=== PATIENT | male | born 1950 | race Caucasian/White ===

== ENCOUNTER → 2016-05-27 | Outpatient (CLI) | payer BC ==
[~2016-05-27] MED LIST: AMLO10TA2 PO; AMLO5TAB2 GT; AMLO5TAB2 PO; BENA20TA2 PO; BNZ20T GT; CATHETER FLUSH 10 ML SYR IV PRN; HYDR-3875 PO; IOHEXOL 350 MG/ML 100 ML (OMNIPAQUE 350) VIAL IV ONE; MULT-35 PO; NITR-65 PO; NS 100 ML (IVPB) BAG IV ONE; TAMS0.4C98 PO
[2016-05-27 10:32] LABS: BLOOD UREA NITROGEN 12 MG/DL (7-18); BUN/CREATININE RATIO 11; CREATININE SERUM 1.11 MG/DL (0.60-1.30); GFR ESTIMATED > 60
--- NOTE | 2016-05-27 13:32 | Diagnostic Imaging Report ---
PROCEDURE: CT abdomen and pelvis with and without contrast. TECHNIQUE: Precontrast acquisitions were acquired through the abdomen and pelvis. Multiple contiguous axial images were obtained through the abdomen and pelvis after the administration of intravenous contrast. INDICATION: Hematuria. Right flank pain. CONTRAST: 100 mL of Omnipaque 350 was administered intravenously. FINDINGS: The unenhanced phase demonstrates a 5 mm nonobstructive stone in the mid right kidney. A 2 mm stone in the lower pole of the right kidney is also seen. A 1 mm nonobstructive stone in the lower pole of the left kidney is seen. There is no hydronephrosis. No ureteric or urinary bladder stones. Post contrast images demonstrate symmetric enhancement and excretion from the kidneys. A simple cyst in the upper pole of the right kidney measuring 2.4 cm is noted. The left lung base demonstrates an indeterminate 6 mm nodule, image 11. No prior studies are available for comparison. The liver, gallbladder, spleen, and adrenal glands appear unremarkable. A 7 mm fat density focus in the pancreatic head is seen which could be related to a tiny lipoma or fatty lesion in the pancreas. Other subcentimeter low-attenuation lesions in the pancreatic body and tail are also seen which could relate to interdigitating fat rather than true intraparenchymal pancreatic lesions. The abdominal aorta is normal in caliber. There is no periaortic significantly enlarged lymph node seen. The prostate is enlarged and heterogenous measuring 5.7 cm in transverse dimension. The colon demonstrates diverticulosis. No evidence of diverticulitis. The urinary bladder demonstrates mild diffuse wall thickening. Correlate for possible underlying cystitis. There is no significant free fluid or fluid collection in the abdomen or pelvis. No bowel obstruction. The appendix is normal. There is a small to moderate sized right periumbilical ventral hernia containing omental fat. The osseous structures demonstrate disc degenerative changes at L5-S1 and bilateral sacroiliac joints. An incidental sclerotic focus in the central aspect of the sacrum measuring 1.2 cm is seen of uncertain etiology. IMPRESSION: 1. Bilateral small kidney stones with the largest measuring 5 mm in the mid right kidney with no hydronephrosis. 2. Mild thickening in the urinary bladder wall which could correlate with cystitis. 3. Diverticulosis. No diverticulitis. 4. Small to medium fat-containing right periumbilical hernia. 5. Indeterminate 6 mm left lung base nodule. A 6 month followup study to observe this lesion is suggested. 6. Enlarged heterogenous prostate. Dictated by: Dictated on workstation # [id number]
== END ==
LOC: RAD 09:14
PROVIDERS: ATTEND Family Medicine
DX: N39.0 Urinary tract infection, site not specified (principal); R31.9 Hematuria, unspecified
CPT/HCPCS: 36415; 74178; 82565; 84520

== ENCOUNTER 2016-06-04 08:20 | Outpatient (RCR) | payer BC ==
[~2016-06-04 08:20] MED LIST changes: -AMLO10TA2 PO; -AMLO5TAB2 PO; -BENA20TA2 PO; -CATHETER FLUSH 10 ML SYR IV PRN; -HYDR-3875 PO; -IOHEXOL 350 MG/ML 100 ML (OMNIPAQUE 350) VIAL IV ONE; -MULT-35 PO; -NITR-65 PO; -NS 100 ML (IVPB) BAG IV ONE; -TAMS0.4C98 PO
--- NOTE | 2016-06-04 10:38 | Diagnostic Imaging Report ---
INDICATION: Kidney stones COMPARISON STUDY: CT scan from May 27. FINDINGS: A 5.7 mm calculi overlies the right kidney. This was seen on the previous CT scan. Bowel gas pattern appears unremarkable. IMPRESSION: There is a 5.7 mm calculi overlying the right kidney. Dictated by: Dictated on workstation # [id number]
[2016-06-11 22:37] LABS: STONE RISK AMMONIUM 35 mEq/24hr (14-62); STONE RISK BRUSHITE 6.74 (< 2.00); STONE RISK CA OXALATE 1.63 (< 2.00); STONE RISK CALCIUM 443 mg/day (< 250); STONE RISK CITRATE 504 mg/day (> 320); STONE RISK CREATININE 2111 mg/day (800-2000); STONE RISK MAGNESIUM 89 mg/day (> 60); STONE RISK OXALATE 37 mg/day (< 45); STONE RISK PHOSPHOROUS 1697 mg/day (< 1100); STONE RISK POTASSIUM 68 mEq/24hr (19-135); STONE RISK SODIUM 259 mEq/24hr (< 200); STONE RISK SODIUM URATES 2.32 (< 2.00); STONE RISK STRUVITE 6.02 (< 75.00); STONE RISK SULFITE 17 mmol/day (< 30); STONE RISK TOTAL VOLUME 2.92 L/day (> 2.00); STONE RISK URIC ACID 894 mg/day (< 700); STONE RISK URIC ACID SAT 0.15 (< 2.00)
[2016-06-12] MEDS ORDERED: AMLO10TA2 PO (11:56)
[2016-06-12] MEDS ORDERED: AMLO5TAB2 PO (11:56)
[2016-06-12] MEDS ORDERED: BENA20TA2 PO (11:56)
[2016-06-12] MEDS ORDERED: MULT-35 PO (11:57)
[2016-06-16] MEDS ORDERED: TAMS0.4C98 PO (09:43)
[2016-06-16] MEDS ORDERED: HYDR-3875 PO (09:43)
[2016-06-16] MEDS ORDERED: NITR-65 PO (09:43)
== END 2016-09-02 | disposition home or self-care (01) ==
LOC: LAB 08:20
PROVIDERS: ATTEND Urology
DX: N20.0 Calculus of kidney (principal)
CPT/HCPCS: 36415; 74000; 82140; 82340; 82507; 82570; 83735; 83945; 83986; 84105; 84133; 84300; 84392; 84560

== ENCOUNTER 2016-06-12 11:44 | Outpatient (CLI) | payer BC ==
[~2016-06-12] VITALS: Ht 182.9 cm; Wt 118.5 kg
[2016-06-12] MEDS ORDERED: AMLO5TAB2 PO (11:56)
[2016-06-12] MEDS ORDERED: AMLO10TA2 PO (11:56)
[2016-06-12] MEDS ORDERED: BENA20TA2 PO (11:56)
[2016-06-12] MEDS ORDERED: MULT-35 PO (11:57)
[2016-06-12 12:01] VITALS: BP 143/87
[2016-06-12 12:32] LABS: BASOPHILS # (AUTO) 0.1 10^3/uL (0.0-0.1); BASOPHILS % (AUTO) 1 % (0-10); EOSINOPHILS # (AUTO) 0.1 10^3/uL (0.0-0.3); EOSINOPHILS % (AUTO) 3 % (0-10); LYMPHOCYTES # (AUTO) 1.7 X 10^3 (1.0-4.0); LYMPHOCYTES % (AUTO) 34 % (12-44); MEAN CORPUSCULAR HEMOGLOBIN 26 PG (25-34); MEAN CORPUSCULAR HGB CONC 33 G/DL (32-36); MEAN CORPUSCULAR VOLUME 77 FL (80-99); MEAN PLATELET VOLUME 11.6 FL (7.4-10.4); MONOCYTES % (AUTO) 21 % (0-12); NEUTROPHILS % (AUTO) 41 % (42-75); PLATELET COUNT 120 10^3/uL (130-400); RED BLOOD COUNT 5.28 10^6/uL (4.35-5.85); RED CELL DISTRIBUTION WIDTH 15.5 % (10.0-14.5); WHITE BLOOD COUNT 4.9 10^3/uL (4.3-11.0)
[2016-06-12 12:55] LABS: ANION GAP 12 MMOL/L (5-14); BLOOD UREA NITROGEN 15 MG/DL (7-18); BUN/CREATININE RATIO 14; CALCIUM 9.3 MG/DL (8.5-10.1); CARBON DIOXIDE 23 MMOL/L (21-32); CHLORIDE 107 MMOL/L (98-107); CREATININE SERUM 1.05 MG/DL (0.60-1.30); GFR ESTIMATED > 60; GLUCOSE 148 MG/DL (70-105); POTASSIUM 3.2 MMOL/L (3.6-5.0); SODIUM 142 MMOL/L (135-145)
[2016-06-12 13:07] LABS: ANISOCYTOSIS SLIGHT; BAND NEUTROPHILS 2 %; BASOPHILS % (MANUAL) 0 %; EOSINOPHILS % (MANUAL) 3 %; LYMPHOCYTES % (MANUAL) 35 %; NEUTROPHILS % (MANUAL) 40 %; REACTIVE LYMPHOCYTES 5 %
== END 2016-06-12 13:00 | disposition home or self-care (01) ==
LOC: PREOP 11:44
PROVIDERS: ATTEND Urology
DX: Z01.812 Encounter for preprocedural laboratory examination (principal); Z11.2 Encounter for screening for other bacterial diseases; N20.0 Calculus of kidney
CPT/HCPCS: 36415; 80048; 85002; 85007; 85027; 87081

== ENCOUNTER 2016-06-16 06:00 | Day surgery (SDC) | payer BC ==
[~2016-06-16] VITALS: Ht 182.9 cm; Wt 118.5 kg
[~2016-06-16 06:00] MED LIST changes: +AMLO10TA2 PO; +AMLO5TAB2 PO; +BENA20TA2 PO; +MULT-35 PO
[2016-06-16] MEDS ORDERED: FAMOTIDINE 20MG/2ML IV (PEPCID) IV ONE (06:45)
[2016-06-16 06:50] VITALS: BP 141/85
[2016-06-16] MEDS ORDERED: ONDANSETRON 4 MG/2 ML (SDV) Z0FRAN ONE (06:55)
[2016-06-16] MEDS ORDERED: MIDAZOLAM 2 MG/2 ML (VERSED) VIAL ONE (06:55)
[2016-06-16] MEDS ORDERED: fentaNYL INJECTION 100 MCG/2 ML AMP ONE (06:55)
[2016-06-16] MEDS ORDERED: SEVOFLURANE (ULTANE) 15 ML INHAL SOLN ONE (06:55)
[2016-06-16] MEDS ORDERED: LIDOCAINE PF 2% 10 ML (XYLOCAINE) AMP ONE (06:55)
[2016-06-16] MEDS ORDERED: proPOfol 200 MG/20 ML (DIPRIVAN) VIAL IV ONE (06:55)
[2016-06-16] MEDS ORDERED: LACTATED RINGERS 1,000 ML IV ONE ×2 (06:55→08:04)
[2016-06-16] MEDS ORDERED: LEVOFLOXACIN 250 MG/50 ML IVPB 50 ML ONE (07:03)
[2016-06-16] MEDS: LACTATED RINGERS 1,000 ML IV PRN ×2 (07:11→08:17)
--- NOTE | 2016-06-16 07:11 | Progress Note-Pre Operative ---
Pre-Operative Progress Note H&P Reviewed The H&P was reviewed, patient examined and no changes noted. Date H&P Reviewed: Jun 16, 2016 Time H&P Reviewed: 07:11 Pre-Operative Diagnosis: RT RENAL STONES RENEA ZAMORANO MD Jun 16, 2016 7:11 am
[2016-06-16] MEDS ORDERED: LEVOFLOXACIN 250 MG/D5W 50 ML (PRE-MIX) IV ONE (07:30)
--- NOTE | 2016-06-16 07:33 | Progress Note-Post Operative ---
Post-Operative Progess Note Surgeon (s)/Core Winder (s) Surgeon RENEA ZAMORANO MD Core Winder: N/A Pre-Operative Diagnosis RT RENAL STONES Post-Operative Diagnosis SAME Post-Op Procedure Note Date of Procedure: Jun 16, 2016 Name of Procedure Performed: RT ESWL Description of the Procedure: PER DICTATION Findings of the Procedure SAME Anesthesia Type GENERAL Estimated blood loss (mL): N/A Specimen(s) collected/removed N/A RENEA ZAMORANO MD Jun 16, 2016 7:33 am
--- NOTE | 2016-06-16 07:35 | Discharge Inst-Urology ---
Discharge Inst-Urology Discharge Medications New, Converted, or Re-newed RX: RX on Chart Patient Instructions/Follow Up Plan Please make appointment to been seen in office in 2 weeks. KUB prior to it KUB on way home Post ESWL instructions Increase oral fluids for 48 hours and then as needed. Diet and Activity as tolerated. If questions or concerns contact your physician Or seek help at emergency department. RENEA ZAMORANO MD Jun 16, 2016 7:35 am
[2016-06-16] MEDS ORDERED: KETOROLAC 30 MG/ML VIAL ONE (07:42)
[2016-06-16] MEDS ORDERED: FUROSEMIDE 40 MG/4 ML INJ (LASIX) ONE (07:42)
[2016-06-16] MEDS ORDERED: morphine INJ 10 MG/ML 1ML (SYR OR VIAL) ONE (08:04)
--- NOTE | 2016-06-16 08:16 | Diagnostic Imaging Report ---
KUB. INDICATION: Right-sided stone. FINDINGS: There is a 9-mm calcification projecting over the right 12th rib, may represent a right kidney stone. The findings are not definitive by this radiograph given the low density of this presumed calcification and the background moderate amounts of fecal material in the colon. No definite left flank or ureteric stones seen. Prostate calcifications are noted. IMPRESSION: Question of a right kidney stone projecting over the mid right 12th rib. Dictated by: Dictated on workstation # [id number]
[2016-06-16 08:45] VITALS: BP 125/77
[2016-06-16 09:15] VITALS: BP 126/86
[2016-06-16] MEDS ORDERED: TAMS0.4C98 PO (09:43)
[2016-06-16] MEDS ORDERED: HYDR-3875 PO (09:43)
[2016-06-16] MEDS ORDERED: NITR-65 PO (09:43)
[2016-06-16 09:45] VITALS: BP 129/84
--- NOTE | 2016-06-16 09:52 | Diagnostic Imaging Report ---
KUB. INDICATION: Post lithotripsy. FINDINGS: The previously seen faint density in the right flank is not well identified at this time. Punctate nonspecific fecaliths or stone fragments in the right flank area are seen. No definite ureteric stone. IMPRESSION: Punctate hyperdensities may represent tiny stone fragments or fecaliths projecting over the right kidney silhouette. Dictated by: Dictated on workstation # [id number]
[2016-06-16 10:05] VITALS: BP 129/84
--- NOTE | 2016-06-16 11:13 | OPERATIVE REPORT ---
PROCEDURE PHYSICIAN: RENEA ZAMORANO DATE OF PROCEDURE: 06/16/2016 PREOPERATIVE DIAGNOSIS: Right renal stones. POSTOPERATIVE DIAGNOSIS: Right renal stones. OPERATION: Right ESWL. SURGEON: Brigette ANESTHESIA: General. COMPLICATIONS: None. PROCEDURE: With the patient supine on the ESWL table, the right renal stones were localized. Shocks were delivered KV of 5. After 2000 shocks we could not visualize the stone anymore, which seemed to have fragmented nicely. The patient received 40 mg of Lasix and 30 mg of Toradol IV at the end of the procedure. He tolerated the procedure and anesthesia well and was sent to recovery room in stable condition. Job ID: [id number] Dictated Date: 06/16/2016 08:01:10 Federal Mediator Date: 06/16/2016 11:10:07 / farrukh
== END 2016-06-16 10:05 | disposition home or self-care (01) ==
LOC: SDC 06:00
PROVIDERS: ATTEND Urology
DX: N20.0 Calculus of kidney (principal)
CPT/HCPCS: 74000

== ENCOUNTER → 2016-06-30 | Outpatient (CLI) | payer BC ==
[~2016-06-30] MED LIST changes: +HYDR-3875 PO; +NITR-65 PO; +TAMS0.4C98 PO
--- NOTE | 2016-06-30 14:29 | Diagnostic Imaging Report ---
INDICATION: Nephrolithiasis. TECHNIQUE: KUB at 2:36 PM. FINDINGS: The bowel gas pattern is normal. There are no radiopaque calculi seen. There are no masses. The osseous structures are normal. IMPRESSION: Negative abdomen. Dictated by: Dictated on workstation # [id number]
== END ==
LOC: RAD 13:50
PROVIDERS: ATTEND Urology
DX: N20.0 Calculus of kidney (principal)
CPT/HCPCS: 74000

== ENCOUNTER → 2016-11-13 | Outpatient (CLI) | payer BC ==
[~2016-11-13] MED LIST changes: +IOHEXOL 350 MG/ML 100 ML (OMNIPAQUE 350) VIAL IV ONE; +NS 100 ML (IVPB) BAG IV ONE
[2016-11-13 09:34] LABS: BLOOD UREA NITROGEN 15 MG/DL (7-18); BUN/CREATININE RATIO 16; CREATININE SERUM 0.94 MG/DL (0.60-1.30); GFR ESTIMATED > 60
[2016-11-13] MEDS: CATHETER FLUSH 10 ML SYR IV PRN ×2 (09:49→09:51)
--- NOTE | 2016-11-13 12:26 | Diagnostic Imaging Report ---
PROCEDURE: CT abdomen with and without contrast. TECHNIQUE: Multiple contiguous axial CT images of the abdomen were obtained prior to and after intravenous administration of iodinated contrast. INDICATION: Basilar pulmonary nodule. COMPARISON: Exam compared with abdominal CT 05/27/2016. FINDINGS: A tiny 5 mm subpleural nodule posterolateral left lower lobe unchanged and most suggestive of benign etiology. No new dominant or suspicious basilar nodule. There is a minute punctate 1-2 mm nonobstructing stone within a right lower pole calyx. There is a simple cyst off the upper pole right kidney. There is no hydronephrosis. There is no solid or suspicious renal nodule. The liver, spleen, adrenals and pancreas were normal. The atherosclerotic aorta is nonaneurysmal. There is right perimedian umbilical hernia comprised solely of peritoneal fat. The defect in the abdominal wall has a transverse neck diameter of 2.8 cm, unchanged from prior. No obvious inflammatory changes within the herniated fat. There is some scattered colonic diverticuli without evidence of diverticulitis where visualized. No ascites. IMPRESSION: Stable tiny 5 mm subpleural nodule left lower lobe, unchanged umbilical peritoneal fatty hernia, scattered colonic noninflamed diverticuli. Nonobstructing renal calculus and a benign renal cyst. Dictated by: Dictated on workstation # [id number]
== END ==
LOC: RAD 08:48
PROVIDERS: ATTEND Family Medicine
DX: R91.1 Solitary pulmonary nodule (principal); K42.9 Umbilical hernia without obstruction or gangrene; K57.30 Diverticulosis of large intestine without perforation or abscess without bleeding; N20.0 Calculus of kidney; N28.1 Cyst of kidney, acquired
CPT/HCPCS: 36415; 74170; 82565; 84520

== ENCOUNTER → 2017-06-17 | Outpatient (CLI) | payer BC, MEDICARE ==
[~2017-06-17] MED LIST changes: -NS 100 ML (IVPB) BAG IV ONE; +NS 250 ML (IVPB) BAG IV ONE
[2017-06-17 08:13] LABS: BASOPHILS # (AUTO) 0.1 10^3/uL (0.0-0.1); BASOPHILS % (AUTO) 1 % (0-10); EOSINOPHILS # (AUTO) 0.1 10^3/uL (0.0-0.3); EOSINOPHILS % (AUTO) 2 % (0-10); HEMATOCRIT 43 % (40-54); HEMOGLOBIN 14.5 G/DL (13.3-17.7); LYMPHOCYTES # (AUTO) 1.7 X 10^3 (1.0-4.0); LYMPHOCYTES % (AUTO) 39 % (12-44); MEAN CORPUSCULAR HEMOGLOBIN 26 PG (25-34); MEAN CORPUSCULAR HGB CONC 34 G/DL (32-36); MEAN CORPUSCULAR VOLUME 77 FL (80-99); MEAN PLATELET VOLUME 12.1 FL (7.4-10.4); MONOCYTES # (AUTO) 1.1 X 10^3 (0.0-1.0); MONOCYTES % (AUTO) 24 % (0-12); NEUTROPHILS # (AUTO) 1.5 X 10^3 (1.8-7.8); NEUTROPHILS % (AUTO) 35 % (42-75); PLATELET COUNT 119 10^3/uL (130-400); RED BLOOD COUNT 5.62 10^6/uL (4.35-5.85); RED CELL DISTRIBUTION WIDTH 15.3 % (10.0-14.5); WHITE BLOOD COUNT 4.4 10^3/uL (4.3-11.0)
[2017-06-17 08:34] LABS: ALANINE AMINOTRANSFERASE 49 U/L (0-55); ALBUMIN 4.6 GM/DL (3.2-4.5); ALKALINE PHOSPHATASE 70 U/L (40-136); BILIRUBIN,TOTAL 1.8 MG/DL (0.1-1.0); BUN/CREATININE RATIO 14; CALCIUM 9.1 MG/DL (8.5-10.1); CARBON DIOXIDE 24 MMOL/L (21-32); CHLORIDE 106 MMOL/L (98-107); CHOLESTEROL 118 MG/DL (< 200); CREATININE SERUM 0.91 MG/DL (0.60-1.30); GFR ESTIMATED > 60; GLUCOSE 174 MG/DL (70-105); HDL CHOLESTEROL 33 MG/DL (40-60); POTASSIUM 3.5 MMOL/L (3.6-5.0); SODIUM 139 MMOL/L (135-145); TOTAL PROTEIN 7.9 GM/DL (6.4-8.2); TRIGLYCERIDES 113 MG/DL (<150); VLDL CHOLESTEROL 23 MG/DL (5-40)
[2017-06-17 08:40] LABS: BAND NEUTROPHILS 1 %; BASOPHILS % (MANUAL) 0 %; EOSINOPHILS % (MANUAL) 0 %; LYMPHOCYTES % (MANUAL) 38 %; MONOCYTES % (MANUAL) 19 %; NEUTROPHILS % (MANUAL) 42 %
[2017-06-17 08:41] LABS: ANISOCYTOSIS SLIGHT
--- NOTE | 2017-06-17 09:51 | Diagnostic Imaging Report ---
PROCEDURE: CT chest and abdomen with and without contrast TECHNIQUE: Multiple axial CT images through the thorax and abdomen were obtained with and without intravenous contrast. INDICATION: Pulmonary nodule and right renal calculus. Study is performed for followup. Comparison is made to prior CT abdomen study from 11/13/2016. CT CHEST: No axillary lymphadenopathy is seen. There is a fatty right paratracheal lymph node. No definite mediastinal or hilar lymphadenopathy is detected. No pericardial or pleural fluid is identified. Parenchymal evaluation does show approximate 5-6 mm nodule posterior lateral left lower lobe, stable. No new parenchymal lung nodules are seen. There does appear to be some minimal patchy groundglass infiltrate in the medial right lower lobe and the medial and posterior left lower lobe, nonspecific. IMPRESSION: 1. Stable left lower lobe pulmonary nodule. 2. Minimal groundglass infiltrates bilateral lower lobes. CT ABDOMEN: No discrete liver mass is identified. The gallbladder is unremarkable. The pancreas and spleen are unremarkable. No adrenal mass is identified. Previously noted punctate nonobstructing calculus lower pole right kidney is stable. There is no hydronephrosis. There is a right renal cyst which appears stable. The left kidney is unremarkable. The aorta is non-aneurysmal. The visualized small and large bowel loops are normal caliber. There is no ascites. There is a fat-containing umbilical hernia, stable. IMPRESSION: Stable CT of the abdomen when compared with examination from 11/13/2016. A fat-containing umbilical hernia stable. Nonobstructing right renal calculus and right renal cyst are stable. Dictated by: Dictated on workstation # [id number]
== END ==
LOC: RAD 07:52
PROVIDERS: ATTEND Family Medicine
DX: R91.1 Solitary pulmonary nodule (principal); N20.0 Calculus of kidney; N28.1 Cyst of kidney, acquired; K42.9 Umbilical hernia without obstruction or gangrene; I10 Essential (primary) hypertension; E11.9 Type 2 diabetes mellitus without complications; Z79.4 Long term (current) use of insulin
CPT/HCPCS: 36415; 71270; 74170; 80053; 80061; 83036; 85007; 85027

== ENCOUNTER 2019-04-12 15:12 | Outpatient (CLI) | payer MEDICARE ==
[~2019-04-12] VITALS: Ht 182.9 cm; Wt 115.9 kg
[~2019-04-12 15:12] MED LIST changes: -AMLO10TA2 PO; +AMLO10TA7 PO; -AMLO5TAB2 PO; +AMLO5TAB9 PO; -BENA20TA2 PO; +BENA20TA7 PO; -IOHEXOL 350 MG/ML 100 ML (OMNIPAQUE 350) VIAL IV ONE; -NS 250 ML (IVPB) BAG IV ONE; -TAMS0.4C98 PO; +TMSL.4C PO
[2019-04-12] MEDS ORDERED: METF-397 PO (15:13)
== END 2019-04-12 15:16 | disposition home or self-care (01) ==
LOC: PREOP 15:12
PROVIDERS: ATTEND Surgery
DX: Z01.818 Encounter for other preprocedural examination (principal)

== ENCOUNTER → 2020-02-22 | Outpatient (CLI) | payer MEDICARE ==
[~2020-02-22] MED LIST changes: +AMLO-250 PO; +AMLO-251 PO; -AMLO10TA7 PO; -AMLO5TAB9 PO; +BARIUM SUSPENSION 2.1% (VANILLA SILQ) 450 ML PO ONE; +HOLD METFORMIN - RECEIVED CONTRAST 20 ML VIAL IV SCH; +IOHEXOL 350 MG/ML 100 ML (OMNIPAQUE 350) VIAL IV ONE; +METF-397 PO; +NS 100 ML (IVPB) BAG IV ONE
--- NOTE | 2020-02-22 09:39 | Diagnostic Imaging Report ---
PROCEDURE: CT Neck, Chest Abdomen and Pelvis with contrast, Abdomen and Pelvis without. TECHNIQUE: Multiple contiguous axial images were obtained through the neck, chest, abdomen, and pelvis after the uneventful bolus administration of intravenous contrast. Precontrast acquisitions through the abdomen and pelvis were performed. Sagittal and coronal reformations are then performed. Auto Exposure Controls were utilized during the CT exam to meet ALARA standards for radiation dose reduction. INDICATION: Mycosis fungoides. COMPARISON: Correlation is made with prior CT chest and abdomen study from 06/17/2017. FINDINGS: CT neck: The visualized intracranial structures are unremarkable. The posterior nasopharynx and oropharynx are unremarkable. The parapharyngeal fat planes are preserved. The epiglottis and larynx are unremarkable. No thyroid mass is detected. The submandibular as well as the parotid glands appear to be symmetric bilaterally. There are multiple prominent lymph nodes within the jugulodigastric spaces bilaterally. These remain within normal limits in size measuring short axis approximately 9 mm. No definite posterior cervical lymphadenopathy is identified. No supraclavicular lymphadenopathy is identified. IMPRESSION: Essentially unremarkable CT soft tissue neck study. No acute features identified. CT chest: No axillary lymphadenopathy is identified. Borderline lymph node AP window is noted measuring 9 mm. A fatty lymph node in right paratracheal location is noted measures 14 mm. No definite hilar lymphadenopathy is identified. No pericardial or pleural fluid is detected. Pulmonary parenchymal evaluation again demonstrates a noncalcified nodule posterolateral left lower lobe, stable approximately 6-7 mm. Additional micronodule posterolateral right lower lobe is stable as well. No new pulmonary nodules are detected. No infiltrates are detected. IMPRESSION: Stable CT chest when compared with exam from 06/17/2017. Bilateral lower lobe micronodules are stable. CT abdomen and pelvis: No discrete liver mass is identified. Gallbladder is unremarkable. No biliary ductal dilatation is identified. The pancreas and spleen are unremarkable. No adrenal mass is detected. Upper pole low-attenuation lesion right kidney appears to be fairly stable. Left kidney is unremarkable. Aorta is non-aneurysmal. No central, retroperitoneal or mesenteric lymphadenopathy is identified. The small and large bowel loops are normal in caliber. No obstruction is seen. There is extensive diverticulosis of the descending and sigmoid colon. In addition, there is some mild inflammatory stranding at the junction of the descending colon and sigmoid, suspicious for mild underlying diverticulitis. No fluid collection is identified. There is no bowel obstruction. The bladder is decompressed. The prostate gland contains central calcifications. No definite inguinal or iliac lymphadenopathy is identified. Bony structures are nonacute. The midline fat-containing umbilical hernia is again noted. IMPRESSION: 1. No evidence of abdominal or pelvic lymphadenopathy. 2. Diverticulosis with probable acute diverticulitis at the junction of the descending colon and sigmoid. No bowel obstruction or abscess formation is identified. 3. Fat-containing umbilical hernia. Dictated by: Dictated on workstation # [id number]
== END ==
LOC: RAD 08:45
PROVIDERS: ATTEND Internal Medicine Hematology & Oncology
DX: C84.00 Mycosis fungoides, unspecified site (principal); K57.30 Diverticulosis of large intestine without perforation or abscess without bleeding; K42.9 Umbilical hernia without obstruction or gangrene; R91.8 Other nonspecific abnormal finding of lung field
CPT/HCPCS: 70491; 71260; 74178

== ENCOUNTER 2020-03-06 09:38 | Outpatient (RCR) | payer MEDICARE ==
[2020-02-16 10:12] LABS: BASOPHILS # (AUTO) 0.1 10^3/uL (0.0-0.1); BASOPHILS % (AUTO) 1 % (0-10); EOSINOPHILS # (AUTO) 0.1 10^3/uL (0.0-0.3); EOSINOPHILS % (AUTO) 1 % (0-10); HEMATOCRIT 46 % (40-54); HEMOGLOBIN 14.4 g/dL (13.3-17.7); LYMPHOCYTES # (AUTO) 1.9 10^3/uL (1.0-4.0); LYMPHOCYTES % (AUTO) 25 % (12-44); MEAN CORPUSCULAR HEMOGLOBIN 24 pg (25-34); MEAN CORPUSCULAR HGB CONC 31 g/dL (32-36); MEAN CORPUSCULAR VOLUME 76 fL (80-99); MONOCYTES # (AUTO) 1.3 10^3/uL (0.0-1.0); MONOCYTES % (AUTO) 17 % (0-12); NEUTROPHILS # (AUTO) 4.4 10^3/uL (1.8-7.8); NEUTROPHILS % (AUTO) 56 % (42-75); WHITE BLOOD COUNT 7.9 10^3/uL (4.3-11.0)
[2020-02-16 10:16] LABS: PLATELET COUNT 104 10^3/uL (130-400)
[2020-02-16 10:31] LABS: ALBUMIN 4.4 GM/DL (3.2-4.5); BILIRUBIN,TOTAL 1.6 MG/DL (0.1-1.0); CALCIUM 9.2 MG/DL (8.5-10.1); CREATININE SERUM 1.24 MG/DL (0.60-1.30); POTASSIUM 3.8 MMOL/L (3.6-5.0); TOTAL PROTEIN 8.7 GM/DL (6.4-8.2)
[~2020-03-06 09:38] MED LIST changes: -BARIUM SUSPENSION 2.1% (VANILLA SILQ) 450 ML PO ONE; -HOLD METFORMIN - RECEIVED CONTRAST 20 ML VIAL IV SCH; -IOHEXOL 350 MG/ML 100 ML (OMNIPAQUE 350) VIAL IV ONE; -NS 100 ML (IVPB) BAG IV ONE
[2020-03-06 09:50] LABS: MEAN CORPUSCULAR HEMOGLOBIN 24 pg (25-34)
[2020-03-06 09:52] LABS: ABSOLUTE RETIC # 146 10e9/uL (24-90); BASOPHILS # (AUTO) 0.1 10^3/uL (0.0-0.1); BASOPHILS % (AUTO) 1 % (0-10); EOSINOPHILS # (AUTO) 0.1 10^3/uL (0.0-0.3); EOSINOPHILS % (AUTO) 1 % (0-10); HEMATOCRIT 44 % (40-54); HEMOGLOBIN 13.6 g/dL (13.3-17.7); LYMPHOCYTES # (AUTO) 1.8 10^3/uL (1.0-4.0); LYMPHOCYTES % (AUTO) 25 % (12-44); MEAN CORPUSCULAR HGB CONC 31 g/dL (32-36); MEAN CORPUSCULAR VOLUME 77 fL (80-99); MONOCYTES # (AUTO) 1.2 10^3/uL (0.0-1.0); MONOCYTES % (AUTO) 17 % (0-12); NEUTROPHILS # (AUTO) 3.7 10^3/uL (1.8-7.8); NEUTROPHILS % (AUTO) 54 % (42-75); PLATELET COUNT 95 10^3/uL (130-400); RETICULOCYTE % 2.58 % (0.50-2.40); WHITE BLOOD COUNT 6.9 10^3/uL (4.3-11.0)
[2020-03-06 10:15] LABS: ANISOCYTOSIS SLIGHT; ATYPICAL LYMPHOCYTES 2 %; EOSINOPHILS % (MANUAL) 1 %; LYMPHOCYTES % (MANUAL) 26 %; MICROCYTOSIS SLIGHT; MONOCYTES % (MANUAL) 13 %; NEUTROPHILS % (MANUAL) 56 %; REACTIVE LYMPHOCYTES 2 %
== END 2020-03-13 08:39 | disposition home or self-care (01) ==
LOC: ONC 09:38
PROVIDERS: ATTEND Internal Medicine Hematology & Oncology
DX: C84.00 Mycosis fungoides, unspecified site (principal); Z80.0 Family history of malignant neoplasm of digestive organs
CPT/HCPCS: 80053; 83615; 85025; 85027; G0463; 38222; 85007; 85045; 88237; 88264; 99214

== ENCOUNTER 2020-03-18 13:20 | Outpatient (RCR) | payer MEDICARE | END 2020-06-13 16:04 | disposition home or self-care (01) | LOC: ONC 13:20 | PROVIDERS: ATTEND Internal Medicine Hematology & Oncology | DX: C84.00 Mycosis fungoides, unspecified site (principal); D69.6 Thrombocytopenia, unspecified | CPT/HCPCS: 99213 ==

== ENCOUNTER 2020-03-26 18:02 | Emergency (ER) | payer MEDICARE ==
[~2020-03-26] VITALS: Ht 73 cm; Wt 114.0 kg
[2020-03-26] MEDS ORDERED: SILVER NITRATE APPLICATOR 1 PKT TP ONE (18:30)
[2020-03-26] MEDS ORDERED: cloNIDine 0.1 MG (CATAPRES) TAB PO ONE (18:30)
--- NOTE | 2020-03-26 18:52 | ED EENT ---
History of Present Illness General Chief Complaint: Nasal Problems Stated Complaint: BLOODY NOSE SINCE 10 AM Nursing Triage Note: pt has had a nose bleed on the right side since 10 am. Pt states he has low platelets and this has happened to him before he normally has to get it cauterized. Source: patient Exam Limitations: no limitations History of Present Illness Date Seen by Provider: Mar 26, 2020 Time Seen by Provider: 18:19 Initial Comments To ER with intermittent nosebleed on the right since 10 AM. History of low platelets but just had them checked a week ago and they were 108,000. Does not want them rechecked today. Timing/Duration: abrupt Severity: moderate Associated Symptoms: denies symptoms Allergies and Home Medications Allergies Coded Allergies: No Known Drug Allergies (Unverified , 06/12/16) Home Medications Amlodipine Besylate 10 Mg Tablet, 10 MG PO DAILY, (Reported) Amlodipine Besylate 5 Mg Tablet, 5 MG PO DAILY, (Reported) Benazepril HCl 20 Mg Tablet, 20 MG PO DAILY, (Reported) Metformin HCl 500 Mg Tablet, 500 MG PO DAILY, (Reported) Multivitamin 1 Each Tablet, 1 EACH PO DAILY, (Reported) Patient Home Medication List Home Medication List Reviewed: Yes Review of Systems Review of Systems Constitutional: see HPI Eyes: No Symptoms Reported Ears: No Symptoms Reported Nose: see HPI Mouth: no symptoms reported Throat: no symptoms reported Respiratory: no symptoms reported Cardiovascular: no symptoms reported Musculoskeletal: no symptoms reported Skin: no symptoms reported Past Rtpmgka-Xjuggz-Scvsli Hx Patient Social History Alcohol Use: Denies Use Type Used: Cigarettes Former Smoker, Quit: Jun 12, 2006 2nd Hand Smoke Exposure: No Recent Infectious Disease Expo: No Recent Hopitalizations: No Immunizations Up To Date PED Vaccines UTD: Yes Seasonal Allergies Seasonal Allergies: Yes Past Medical History Surgeries: Yes (COLONOSCOPY-polyps removed, ESWL) Respiratory: Yes Sleep Apnea Currently Using CPAP: Yes Cardiac: Yes Hypertension Neurological: Yes (BLAIR MOUNTAIN SPOTTED FEVER) Reproductive Disorders: No Sexually Transmitted Disease: No HIV/AIDS: No Genitourinary: Yes Kidney Stones Gastrointestinal: Yes (UMBILICAL HERNIA) Diverticulosis, Polyps, Hiatal Hernia Musculoskeletal: No (HX OF L4-S1 PROBLEM) Degenerate Disk Disease Endocrine: No (prediabetic) HEENT: No Loss of Vision: Bilateral Hearing Impairment: Denies Cancer: No Psychosocial: No Integumentary: No Blood Disorders: Yes (low platelets) Adverse Reaction/Blood Tranf: No Family Medical History Cancer 19 MOTHER (COLON CANCER THAT METASTICIZED TO LIVER) Cancer of colon 19 MOTHER Colon cancer Family history: Hypertension 19 MOTHER No Family History of: Abdominal aortic aneurysm Lamoille's disease Alcoholism Aphasia Cataract Chest pain Congenital heart disease Congestive heart failure Cystic fibrosis Dementia Dysphagia Family history: Allergy Family history: Alzheimer's disease Family history: Arthritis Family history: Asthma Family history: Breast disease Family history: Cardiovascular disease Family history: Coronary thrombosis Family history: Diabetes mellitus Family history: Gastrointestinal disease Family history: Glaucoma Family history: Osteoporosis Family history: Thyroid disorder Headache Hearing loss Heart disease Hereditary disease History of - anemia History of - disorder History of - respiratory disease History of drug abuse Human immunodeficiency virus (HIV) seropositivity Hypercholesterolemia Infertile Kidney disease Malignant neoplasm of lung Myocardial infarction Parkinson's disease Prostate cancer Psychotic disorder Seizure disorder Stroke Tuberculosis Visual impairment Physical Exam Vital Signs Vital Signs - First Documented 03/26/20 18:12 Temp 36.4 Pulse 75 Resp 20 B/P (MAP) 183/99 (127) Pulse Ox 95 O2 Delivery Room Air Height, Weight, BMI Height: 6'0.00" Weight: 261lbs. 3.0oz. [id number]; 213.00 BMI Method: General Appearance: WD/WN, no apparent distress Eyes: bilateral eye normal inspection, bilateral eye PERRL, bilateral eye EOMI Ears: bilateral ear auricle normal, bilateral ear canal normal, bilateral ear TM normal Nose: active bleeding (Slow oozing of blood from the right side of the anterior nasal septum easily cauterized with 2 silver nitrate sticks with hemostasis.) Neck: non-tender, full range of motion Respiratory: no respiratory distress, no accessory muscle use Gastrointestinal: normal bowel sounds, non tender Neurologic/Psychiatric: alert, normal mood/affect, oriented x 3 Skin: normal color, warm/dry Progress/Results/Core Measures Results/Orders My Orders Orders - LOTTIE MUNOZ APRN Oxymetazoline 0.05% Nasal Mylo (Afrin 0. (03/26/20 21:00) Silver Nitrate Applicator (Silver Nitrat (03/26/20 18:30) Clonidine Tablet (Catapres Tablet) (03/26/20 18:30) Medications Given in ED Current Medications Medications Dose Ordered Sig/Nichole Route Start Time Stop Time Status Last Admin Dose Admin Clonidine HCl 0.1 mg ONCE ONCE PO 03/26/20 18:30 03/26/20 18:31 DC 03/26/20 18:30 0.1 MG Vital Signs/I&O 03/26/20 18:12 Temp 36.4 Pulse 75 Resp 20 B/P (MAP) 183/99 (127) Pulse Ox 95 O2 Delivery Room Air Blood Pressure Mean: 127 Departure Communication (Admissions) Blood pressure was up to 170/100. Given clonidine. He will need to follow-up with primary care for hypertension. Impression Primary Impression: Epistaxis Additional Impression: High blood pressure Disposition: HOME, SELF-CARE Condition: Stable Departure-Patient Inst. Decision time for Depature: 18:53 Referrals: HANS MCMILLAN MD (PCP/Family) Primary Care Physician Patient Instructions: Nosebleeds (DC) Add. Discharge Instructions: 1. Follow-up with Dr. Mcmillan this week for recheck of blood pressure. Return to ER for any concerns. All discharge instructions reviewed with patient and/or family. Voiced understanding. LOTTIE MUNOZ NURSE PRACTITIONER ADULT Mar 26, 2020 18:52
[2020-03-26 19:22] VITALS: BP 183/101
[2020-03-26] MEDS ORDERED: OXYMETAZOLINE (AFRIN) 0.05% NA 30 ML BTL SCH (21:00)
== END 2020-03-26 19:22 | disposition home or self-care (01) ==
LOC: EDUNIT# 18:02 → ER 18:06
DX: R04.0 Epistaxis (principal); I10 Essential (primary) hypertension; Z87.891 Personal history of nicotine dependence; Z80.0 Family history of malignant neoplasm of digestive organs; Z82.49 Family history of ischemic heart disease and other diseases of the circulatory system
CPT/HCPCS: 99283

== ENCOUNTER → 2020-04-16 | Outpatient (CLI) | payer MEDICARE | LOC: LAB 10:38 | PROVIDERS: ATTEND Family Medicine | DX: Z01.82 Encounter for allergy testing (principal) | CPT/HCPCS: 36415; 86003 ==

== ENCOUNTER 2020-06-15 18:48 | Emergency (ER) | payer MEDICARE ==
[~2020-06-15] VITALS: Ht 182 cm; Wt 113.3 kg
[2020-06-15 18:56] VITALS: BP 172/96
[2020-06-15] MEDS ORDERED: LIDOCAINE 1% INJ 20 ML 20 ML VIAL INJ ONE (19:30)
[2020-06-15] MEDS ORDERED: RX-HYDROCODONE/APAP 5/325 MG #4 TAB PK PO PRN (19:30)
--- NOTE | 2020-06-15 19:47 | ED Integumentary General ---
General Chief Complaint: Skin/Wound Problems Stated Complaint: POSSIBLE INFECTION, WOUND ON BACK OF NECK Nursing Triage Note: Patient ambulatory to ER with c/o wound to posterior right head. Pt states this has been present x 4 days. He did see his PCP yesterday. He has been taking antibiotics for 30 days for skin issues but does not remember what kind of antibiotic it is. There is puralent drainage present. Patient took tylenol 650 mg 30 minutes ago. Source: patient Exam Limitations: no limitations History of Present Illness Date Seen by Provider: Jun 15, 2020 Time Seen by Provider: 19:30 Initial Comments To ER with reports of a right posterior parietal scalp wound. He saw Dr. Ramirez in [place] from dermatology and was given an antibiotic for 30 days. States is now draining some pus. Timing/Duration: getting worse Severity: moderate Location: scalp Possible Cause: no cause identified Associated Symptoms: denies symptoms Allergies and Home Medications Allergies Coded Allergies: No Known Drug Allergies (Unverified , 06/12/16) Home Medications Amlodipine Besylate 10 Mg Tablet, 10 MG PO DAILY, (Reported) Amlodipine Besylate 5 Mg Tablet, 5 MG PO DAILY, (Reported) Benazepril HCl 20 Mg Tablet, 20 MG PO DAILY, (Reported) Metformin HCl 500 Mg Tablet, 500 MG PO DAILY, (Reported) Multivitamin 1 Each Tablet, 1 EACH PO DAILY, (Reported) Patient Home Medication List Home Medication List Reviewed: Yes Review of Systems Review of Systems Constitutional: see HPI; No chills EENTM: see HPI Respiratory: no symptoms reported Cardiovascular: no symptoms reported Genitourinary: no symptoms reported Musculoskeletal: no symptoms reported Skin: see HPI Psychiatric/Neurological: No Symptoms Reported Endocrine: No Symptoms Reported Past Zgsybwj-Xizagz-Kvakpt Hx Patient Social History Alcohol Use: Denies Use Smoking Status: Former Smoker Type Used: Cigarettes Former Smoker, Quit: Jun 12, 2006 2nd Hand Smoke Exposure: No Recent Infectious Disease Expo: No Recent Hopitalizations: No Immunizations Up To Date PED Vaccines UTD: Yes Seasonal Allergies Seasonal Allergies: Yes Past Medical History Surgeries: Yes (COLONOSCOPY-polyps removed, ESWL) Respiratory: Yes Sleep Apnea Currently Using CPAP: Yes Cardiac: Yes Hypertension Neurological: Yes (BLAIR MOUNTAIN SPOTTED FEVER) Reproductive Disorders: No Sexually Transmitted Disease: No HIV/AIDS: No Genitourinary: Yes Kidney Stones Gastrointestinal: Yes (UMBILICAL HERNIA) Diverticulosis, Polyps, Hiatal Hernia Musculoskeletal: No (HX OF L4-S1 PROBLEM) Degenerate Disk Disease Endocrine: No (prediabetic) HEENT: No Loss of Vision: Bilateral Hearing Impairment: Denies Cancer: No Psychosocial: No Integumentary: No Blood Disorders: Yes (low platelets) Adverse Reaction/Blood Tranf: No Family Medical History Cancer 19 MOTHER (COLON CANCER THAT METASTICIZED TO LIVER) Cancer of colon 19 MOTHER Colon cancer Family history: Hypertension 19 MOTHER No Family History of: Abdominal aortic aneurysm [place]'s disease Alcoholism Aphasia Cataract Chest pain Congenital heart disease Congestive heart failure Cystic fibrosis Dementia Dysphagia Family history: Allergy Family history: Alzheimer's disease Family history: Arthritis Family history: Asthma Family history: Breast disease Family history: Cardiovascular disease Family history: Coronary thrombosis Family history: Diabetes mellitus Family history: Gastrointestinal disease Family history: Glaucoma Family history: Osteoporosis Family history: Thyroid disorder Headache Hearing loss Heart disease Hereditary disease History of - anemia History of - disorder History of - respiratory disease History of drug abuse Human immunodeficiency virus (HIV) seropositivity Hypercholesterolemia Infertile Kidney disease Malignant neoplasm of lung Myocardial infarction Parkinson's disease Prostate cancer Psychotic disorder Seizure disorder Stroke Tuberculosis Visual impairment Physical Exam Vital Signs Vital Signs - First Documented 06/15/20 18:56 Temp 35.9 Pulse 88 Resp 18 B/P (MAP) 172/96 (121) Pulse Ox 94 O2 Delivery Room Air Capillary Refill : Less Than 3 Seconds General Appearance: WD/WN, no apparent distress HEENT: PERRL/EOMI, normal ENT inspection Neck: non-tender, full range of motion Respiratory: no respiratory distress, no accessory muscle use Neurologic/Psychiatric: alert, normal mood/affect, oriented x 3 Skin: normal color, warm/dry Skin Problem Location: scalp Skin Problem Character: abscess Procedures/Interventions I&D : Blade Size: 11 Progress/Results/Core Measures Results/Orders My Orders Orders - LOTTIE MUNOZ APRN Wound Culture (06/15/20 19:21) Lidocaine 1% Inj 20 Ml (Xylocaine 1% Inj (06/15/20 19:30) Rx-Hydrocodone/Apap 5-325 Mg (Rx-Vicodin (06/15/20 19:30) Medications Given in ED Current Medications Medications Dose Ordered Sig/Nichole Route Start Time Stop Time Status Last Admin Dose Admin Lidocaine HCl 20 ml ONCE ONCE INJ 06/15/20 19:30 06/15/20 19:31 DC 06/15/20 19:26 20 ML Vital Signs/I&O 06/15/20 18:56 Temp 35.9 Pulse 88 Resp 18 B/P (MAP) 172/96 (121) Pulse Ox 94 O2 Delivery Room Air Blood Pressure Mean: 121 Departure Impression Primary Impression: Abscess Disposition: HOME, SELF-CARE Condition: Stable Departure-Patient Inst. Decision time for Depature: 19:47 Referrals: HANS MCMILLAN MD (PCP/Family) Primary Care Physician Patient Instructions: Wound Care (DC) Add. Discharge Instructions: 1. Return to ER for any concerns. Continue the oral antibiotics. Change the dressing as needed. All discharge instructions reviewed with patient and/or family. Voiced understanding. LOTTIE MUNOZ TEACHER EMOTIONALLY IMPAIRED Jun 15, 2020 19:47
== END 2020-06-15 19:55 | disposition home or self-care (01) ==
LOC: EDUNIT# 18:48 → ER 18:53
DX: L02.811 Cutaneous abscess of head [any part, except face] (principal); I10 Essential (primary) hypertension; Z87.891 Personal history of nicotine dependence; Z82.49 Family history of ischemic heart disease and other diseases of the circulatory system; Z80.0 Family history of malignant neoplasm of digestive organs
CPT/HCPCS: 87070; 87077; 87186; 87205; 99284

== ENCOUNTER 2020-08-09 18:44 | Emergency (ER) | payer MEDICARE ==
[~2020-08-09] VITALS: Ht 172.7 cm; Wt 113.4 kg
[2020-08-09 18:55] VITALS: BP 153/95
--- NOTE | 2020-08-09 19:17 | ED Integumentary General ---
General Stated Complaint: ABSCESS ON TOP OF HEAD Source: patient Exam Limitations: no limitations History of Present Illness Date Seen by Provider: Aug 09, 2020 Time Seen by Provider: 19:03 Initial Comments Patient ER by private conveyance from home with chief complaint of an abscess on the top of his head coming for the past couple days. He says he been trying to get it to drain unsuccessfully. He has a history of some kind of folliculitis diagnosed by dermatology at [facility]. He is doing 90 days of doxycycline because of a history of MRSA infected folliculitis and then will be doing isotretinoin a after that. 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 all of which were negative. He is still on the doxycycline. Allergies and Home Medications Allergies Coded Allergies: No Known Drug Allergies (Unverified , 06/12/16) Home Medications Amlodipine Besylate 10 Mg Tablet, 10 MG PO DAILY, (Reported) Amlodipine Besylate 5 Mg Tablet, 5 MG PO DAILY, (Reported) Benazepril HCl 20 Mg Tablet, 20 MG PO DAILY, (Reported) Metformin HCl 500 Mg Tablet, 500 MG PO DAILY, (Reported) Multivitamin 1 Each Tablet, 1 EACH PO DAILY, (Reported) Patient Home Medication List Home Medication List Reviewed: Yes Review of Systems Review of Systems Constitutional: No chills, No fever Respiratory: No cough, No short of breath Cardiovascular: No edema, No palpitations Gastrointestinal: No abdominal pain, No constipation Past Xlbayms-Ssgiai-Hpikbm Hx Patient Social History Alcohol Use: Denies Use Smoking Status: Former Smoker Type Used: Cigarettes Former Smoker, Quit: Jun 12, 2006 2nd Hand Smoke Exposure: No Recent Hopitalizations: No Immunizations Up To Date PED Vaccines UTD: Yes Seasonal Allergies Seasonal Allergies: Yes Past Medical History Surgeries: Yes (COLONOSCOPY-polyps removed, ESWL) Respiratory: Yes Sleep Apnea Currently Using CPAP: Yes Cardiac: Yes Hypertension Neurological: Yes (BLAIR MOUNTAIN SPOTTED FEVER) Reproductive Disorders: No Sexually Transmitted Disease: No HIV/AIDS: No Genitourinary: Yes Kidney Stones Gastrointestinal: Yes (UMBILICAL HERNIA) Diverticulosis, Polyps, Hiatal Hernia Musculoskeletal: No (HX OF L4-S1 PROBLEM) Degenerate Disk Disease Endocrine: No (prediabetic) HEENT: No Loss of Vision: Bilateral Hearing Impairment: Denies Cancer: No Psychosocial: No Integumentary: No Blood Disorders: Yes (low platelets) Adverse Reaction/Blood Tranf: No Family Medical History Cancer 19 MOTHER (COLON CANCER THAT METASTICIZED TO LIVER) Cancer of colon 19 MOTHER Colon cancer Family history: Hypertension 19 MOTHER No Family History of: Abdominal aortic aneurysm [place]'s disease Alcoholism Aphasia Cataract Chest pain Congenital heart disease Congestive heart failure Cystic fibrosis Dementia Dysphagia Family history: Allergy Family history: Alzheimer's disease Family history: Arthritis Family history: Asthma Family history: Breast disease Family history: Cardiovascular disease Family history: Coronary thrombosis Family history: Diabetes mellitus Family history: Gastrointestinal disease Family history: Glaucoma Family history: Osteoporosis Family history: Thyroid disorder Headache Hearing loss Heart disease Hereditary disease History of - anemia History of - disorder History of - respiratory disease History of drug abuse Human immunodeficiency virus (HIV) seropositivity Hypercholesterolemia Infertile Kidney disease Malignant neoplasm of lung Myocardial infarction Parkinson's disease Prostate cancer Psychotic disorder Seizure disorder Stroke Tuberculosis Visual impairment Physical Exam Vital Signs Capillary Refill : General Appearance: WD/WN, no apparent distress HEENT: normal ENT inspection, pharynx normal Neck: full range of motion, normal inspection Cardiovascular: normal peripheral pulses, regular rate, rhythm Respiratory: no respiratory distress, no accessory muscle use Neurologic/Psychiatric: alert, normal mood/affect, oriented x 3 Skin: other (Nodular appearing folliculitis over his neck and scalp. There is a raised 1 cm tall, 2 cm diameter tender papule with draining pointing central area and fluctuance palpable underneath on the left portion of his parietal occipital scalp. Small amount of dried serous crusting.) Procedures/Interventions I&D : Site: Left parietal occipital scalp Blade Size: 11 I & D Procedure: betadine prep (Alcohol wipe) Progress Site was cleaned twice with alcohol allowed to dry and then infiltrated with 1/2 cc of 1% lidocaine which gave good anesthesia. Using 11 blade scalpel we made a 4 x 4 millimeter crosswise incision and expressed about 1-1/2 cc of thick, nonmalodorous, sebaceous versus purulent material which was cultured with ase ptic technique. Wound was expressed, flushed, probed with a sterile cotton- tipped applicator and dressed with gauze. Patient tolerated the procedure well. Progress/Results/Core Measures Results/Orders My Orders Orders - YOUSUF ESQUEDA Wound Culture (08/09/20 19:13) Departure Impression Primary Impression: Abscess Additional Impression: Chronic folliculitis Disposition: 01 HOME, SELF-CARE Condition: Stable Departure-Patient Inst. Decision time for Depature: 19:15 Referrals: HANS MCMILLAN MD (PCP/Family) Primary Care Physician Patient Instructions: Abscess Incision and Drainage (DC) Add. Discharge Instructions: You have an infected folliculitis on the top of your head that has been opened and drained. It should continue to drain over the next couple days. Do not attempt to clog the wound or cover it with Vaseline. A loose gauze dressing to catch the drainage is all you need. Keep the wound clean with regular soap and water or shampoo only. Do not use antibacterial soap. Do not use chlorhexidine, alcohol, iodine or hydrogen peroxide as this will delay wound healing and increase your risk of a wound infection. Keep your follow-up appointment with a orthopaedic physician assistant. Continue take the doxycycline as prescribed. The wound culture should result out by Wednesday or Wednesday of next week. You may follow-up with your primary care doctor for results. Copy Copies To 1: HANS MCMILLAN MD, TITUS J Aug 09, 2020 19:17
== END 2020-08-09 19:33 | disposition home or self-care (01) ==
LOC: EDUNIT# 18:44 → ER 18:46
DX: L73.8 Other specified follicular disorders (principal); L02.811 Cutaneous abscess of head [any part, except face]; I10 Essential (primary) hypertension; G47.30 Sleep apnea, unspecified; Z99.89 Dependence on other enabling machines and devices; Z87.891 Personal history of nicotine dependence; Z86.14 Personal history of Methicillin resistant Staphylococcus aureus infection
CPT/HCPCS: 87070; 87077; 87186; 87205; 99282

== ENCOUNTER 2020-09-02 09:43 | Outpatient (RCR) | payer MEDICARE ==
[2020-06-18 10:30] LABS: BASOPHILS % (AUTO) 1 % (0-10)
[2020-06-18 10:32] LABS: BASOPHILS # (AUTO) 0.1 10^3/uL (0.0-0.1); EOSINOPHILS % (AUTO) 0 % (0-10); HEMATOCRIT 42 % (40-54); HEMOGLOBIN 13.2 g/dL (13.3-17.7); LYMPHOCYTES # (AUTO) 1.9 10^3/uL (1.0-4.0); LYMPHOCYTES % (AUTO) 18 % (12-44); MEAN CORPUSCULAR HEMOGLOBIN 24 pg (25-34); MEAN CORPUSCULAR HGB CONC 32 g/dL (32-36); MEAN CORPUSCULAR VOLUME 77 fL (80-99); MONOCYTES # (AUTO) 1.7 10^3/uL (0.0-1.0); MONOCYTES % (AUTO) 16 % (0-12); NEUTROPHILS # (AUTO) 6.7 10^3/uL (1.8-7.8); NEUTROPHILS % (AUTO) 63 % (42-75); PLATELET COUNT 75 10^3/uL (130-400); WHITE BLOOD COUNT 10.7 10^3/uL (4.3-11.0)
[2020-06-18 10:47] LABS: ALBUMIN 3.9 GM/DL (3.2-4.5); BILIRUBIN,TOTAL 1.2 MG/DL (0.1-1.0); CREATININE SERUM 1.25 MG/DL (0.60-1.30); TOTAL PROTEIN 8.2 GM/DL (6.4-8.2)
[2020-09-02 09:53] LABS: BASOPHILS # (AUTO) 0.1 10^3/uL (0.0-0.1); BASOPHILS % (AUTO) 1 % (0-10); NEUTROPHILS % (AUTO) 62 % (42-75)
[2020-09-02 09:55] LABS: EOSINOPHILS # (AUTO) 0.1 10^3/uL (0.0-0.3); EOSINOPHILS % (AUTO) 1 % (0-10); HEMATOCRIT 40 % (40-54); HEMOGLOBIN 12.5 g/dL (13.3-17.7); LYMPHOCYTES # (AUTO) 1.9 10^3/uL (1.0-4.0); LYMPHOCYTES % (AUTO) 20 % (12-44); MEAN CORPUSCULAR HEMOGLOBIN 24 pg (25-34); MEAN CORPUSCULAR HGB CONC 31 g/dL (32-36); MEAN CORPUSCULAR VOLUME 76 fL (80-99); MONOCYTES # (AUTO) 1.3 10^3/uL (0.0-1.0); MONOCYTES % (AUTO) 14 % (0-12); NEUTROPHILS # (AUTO) 5.9 10^3/uL (1.8-7.8); WHITE BLOOD COUNT 9.6 10^3/uL (4.3-11.0)
[2020-09-02 09:56] LABS: PLATELET COUNT 101 10^3/uL (130-400)
[2020-09-02 10:11] LABS: ALBUMIN 3.8 GM/DL (3.2-4.5); BILIRUBIN,TOTAL 1.2 MG/DL (0.1-1.0); CALCIUM 8.9 MG/DL (8.5-10.1); CREATININE SERUM 1.23 MG/DL (0.60-1.30); POTASSIUM 3.7 MMOL/L (3.6-5.0); TOTAL PROTEIN 8.9 GM/DL (6.4-8.2)
== END 2020-09-16 | disposition home or self-care (01) ==
LOC: ONC 09:43
PROVIDERS: ATTEND Internal Medicine Hematology & Oncology
DX: C84.00 Mycosis fungoides, unspecified site (principal); D69.6 Thrombocytopenia, unspecified
CPT/HCPCS: 80053; 83615; 85025; G0463; 99213

== ENCOUNTER 2021-03-23 15:40 | Emergency (ER) | payer MEDICARE ==
[~2021-03-23] VITALS: Ht 183 cm; Wt 111.1 kg
[~2021-03-23 15:40] MED LIST changes: +BENA-3 PO; -BENA20TA7 PO
[2021-03-23 16:04] LABS: BASOPHILS # (AUTO) 0.1 10^3/uL (0.0-0.1); BASOPHILS % (AUTO) 1 % (0-10); EOSINOPHILS % (AUTO) 0 % (0-10); HEMATOCRIT 41 % (40-54); HEMOGLOBIN 12.8 g/dL (13.3-17.7); LYMPHOCYTES # (AUTO) 2.2 10^3/uL (1.0-4.0); LYMPHOCYTES % (AUTO) 22 % (12-44); MEAN CORPUSCULAR HEMOGLOBIN 24 pg (25-34); MEAN CORPUSCULAR HGB CONC 31 g/dL (32-36); MEAN CORPUSCULAR VOLUME 75 fL (80-99); MONOCYTES # (AUTO) 1.5 10^3/uL (0.0-1.0); MONOCYTES % (AUTO) 15 % (0-12); NEUTROPHILS # (AUTO) 6.2 10^3/uL (1.8-7.8); NEUTROPHILS % (AUTO) 61 % (42-75); WHITE BLOOD COUNT 10.1 10^3/uL (4.3-11.0)
[2021-03-23 16:05] LABS: PLATELET COUNT 97 10^3/uL (130-400)
[2021-03-23] MEDS ORDERED: PANTOPRAZOLE 40 MG (PROTONIX) VIAL IV ONE (16:15)
[2021-03-23 16:31] LABS: BILIRUBIN,TOTAL 1.6 MG/DL (0.1-1.0); CALCIUM 9.4 MG/DL (8.5-10.1); CREATININE SERUM 1.06 MG/DL (0.60-1.30); POTASSIUM 3.5 MMOL/L (3.6-5.0); TOTAL PROTEIN 8.2 GM/DL (6.4-8.2)
--- NOTE | 2021-03-23 16:32 | ED GI ---
General Chief Complaint: Rect Problems Stated Complaint: BLOOD IN STOOL Nursing Triage Note: PT AMB TO RM 5 W C/O OF BLOODY STOOLS SX 0930 THIS AM. PT REPORTS HE'S HAD 4 BM'S TODAY, FIRST BM HAD BRIGHT RED BLOOD, BLOOD HAS BEEN GETTING DARKER W LAST 3 BM'S. PT A&OX4, DENIES PAIN. Source of Information: Patient Exam Limitations: No Limitations History of Present Illness Date Seen by Provider: Mar 23, 2021 Time Seen by Provider: 15:48 Initial Comments Patient presents ER by private conveyance from home with chief complaint that this morning about 9:00 he had a large bloody bowel movement. He said 2 more since then. He is not having any chest pain shortness of air. He is not on a blood thinner. He states he has been told he has low platelets in the past. He is not having any pain anywhere. He is not having any nausea or vomiting. He had colonoscopy 3 to [address] Bobo and a couple years after that. Each time found benign polyps. Allergies and Home Medications Allergies Coded Allergies: No Known Drug Allergies (Unverified , 06/12/16) Patient Home Medication List Home Medication List Reviewed: Yes Amlodipine Besylate (Amlodipine Besylate) 10 Mg Tablet, 10 MG PO DAILY, (Reported) Entered as Reported by: DALLAS BAHENA on 06/12/16 115 Amlodipine Besylate (Amlodipine Besylate) 5 Mg Tablet, 5 MG PO DAILY, (Reported) Entered as Reported by: DALLAS BAHENA on 06/12/16 1156 Benazepril HCl (Benazepril HCl) 20 Mg Tablet, 20 MG PO DAILY, (Reported) Entered as Reported by: DALLAS BAHENA on 06/12/16 115 Metformin HCl (Metformin HCl) 500 Mg Tablet, 500 MG PO DAILY, (Reported) Entered as Reported by: LAN RAMÍREZ on 04/12/19 151 Multivitamin (Daily Multiple Vitamin) 1 Each Tablet, 1 EACH PO DAILY, (Reported) Entered as Reported by: DALLAS BAHENA on 06/12/16 1157 Review of Systems Review of Systems Constitutional: No chills, No diaphoresis EENTM: No Blurred Vision, No Double Vision Respiratory: Denies Cough, Denies Shortness of Air Cardiovascular: Denies Chest Pain, Denies Lightheadedness Gastrointestinal: Denies Abdomen Distended, Denies Abdominal Pain, Denies Constipated; Diarrhea; Denies Nausea; Rectal Bleeding Genitourinary: Denies Burning, Denies Discharge Musculoskeletal: No back pain, No joint pain All Other Systems Reviewed Negative Unless Noted: Yes Past Xdqjsvs-Bgfhrg-Untnew Hx Patient Social History Tobacco Use?: No Use of E-Cig and/or Vaping dev: No Substance use?: No Alcohol Use?: No Immunizations Up To Date PED Vaccines UTD: Yes Influenza Vaccine Up-to-Date: No; Not Current First/Initial COVID19 Vaccinat: may 2020 Second COVID19 Vaccination Wil: june 2020 COVID19 Vaccine 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: [employer] Seasonal Allergies Seasonal Allergies: Yes Past Medical History Surgeries: Yes (COLONOSCOPY-polyps removed, ESWL) Respiratory: Yes Sleep Apnea Currently Using CPAP: Yes Cardiac: Yes Hypertension Neurological: Yes (BLAIR MOUNTAIN SPOTTED FEVER) Reproductive Disorders: No Sexually Transmitted Disease: No HIV/AIDS: No Genitourinary: Yes Kidney Stones Gastrointestinal: Yes (UMBILICAL HERNIA) Diverticulosis, Polyps, Hiatal Hernia Musculoskeletal: No (HX OF L4-S1 PROBLEM) Degenerate Disk Disease Endocrine: No Diabetes, Non-Insulin dep HEENT: No Loss of Vision: Bilateral Hearing Impairment: Denies Cancer: No Psychosocial: No Integumentary: No Blood Disorders: Yes (low platelets) Adverse Reaction/Blood Tranf: No Family Medical History Cancer 19 MOTHER (COLON CANCER THAT METASTICIZED TO LIVER) Cancer of colon 19 MOTHER Colon cancer Family history: Hypertension 19 MOTHER No Family History of: Abdominal aortic aneurysm [place]'s disease Alcoholism Aphasia Cataract Chest pain Congenital heart disease Congestive heart failure Cystic fibrosis Dementia Dysphagia Family history: Allergy Family history: Alzheimer's disease Family history: Arthritis Family history: Asthma Family history: Breast disease Family history: Cardiovascular disease Family history: Coronary thrombosis Family history: Diabetes mellitus Family history: Gastrointestinal disease Family history: Glaucoma Family history: Osteoporosis Family history: Thyroid disorder Headache Hearing loss Heart disease Hereditary disease History of - anemia History of - disorder History of - respiratory disease History of drug abuse Human immunodeficiency virus (HIV) seropositivity Hypercholesterolemia Infertile Kidney disease Malignant neoplasm of lung Myocardial infarction Parkinson's disease Prostate cancer Psychotic disorder Seizure disorder Stroke Tuberculosis Visual impairment Physical Exam Vital Signs Vital Signs - First Documented 03/23/21 15:44 Temp 36.3 Pulse 85 Resp 20 B/P (MAP) 192/94 (126) Pulse Ox 98 O2 Delivery Room Air Capillary Refill : Less Than 3 Seconds Height/Weight/BMI Height: 6'0.00" Weight: 261lbs. 3.0oz. 118.425232di; 33.00 BMI Method: General Appearance: WD/WN, no apparent distress HEENT: PERRL/EOMI, pharynx normal Neck: full range of motion, normal inspection Respiratory: normal breath sounds, no respiratory distress, no accessory muscle use Cardiovascular: normal peripheral pulses, regular rate, rhythm Gastrointestinal: normal bowel sounds, non tender, soft Genital/Rectal: heme positive stool, other (Normal size prostate. No masses in the rectal verge. No infarcted hemorrhoids noted or fissures. There is some dark maroon-red secretions at the anus.) Extremities: normal inspection, normal capillary refill Progress/Results/Core Measures Results/Orders Lab Results Laboratory Tests Test 03/23/21 15:50 Range/Units White Blood Count 10.1 4.3-11.0 10^3/uL Red Blood Count 5.42 4.30-5.52 10^6/uL Hemoglobin 12.8 L 13.3-17.7 g/dL Hematocrit 41 40-54 % Mean Corpuscular Volume 75 L 80-99 fL Mean Corpuscular Hemoglobin 24 L 25-34 pg Mean Corpuscular Hemoglobin Concent 31 L 32-36 g/dL Red Cell Distribution Width 16.2 H 10.0-14.5 % Platelet Count 97 L 130-400 10^3/uL Mean Platelet Volume 9.0-12.2 fL Immature Granulocyte % (Auto) 2 % Neutrophils (%) (Auto) 61 42-75 % Lymphocytes (%) (Auto) 22 12-44 % Monocytes (%) (Auto) 15 H 0-12 % Eosinophils (%) (Auto) 0 0-10 % Basophils (%) (Auto) 1 0-10 % Neutrophils # (Auto) 6.2 1.8-7.8 10^3/uL Lymphocytes # (Auto) 2.2 1.0-4.0 10^3/uL Monocytes # (Auto) 1.5 H 0.0-1.0 10^3/uL Eosinophils # (Auto) 0.0 0.0-0.3 10^3/uL Basophils # (Auto) 0.1 0.0-0.1 10^3/uL Immature Granulocyte # (Auto) 0.2 H 0.0-0.1 10^3/uL Percent Immature Platelet Fraction 20.9 H 0.0-7.6 % My Orders Orders - YOUSUF ESQUEDA Corie Cbc With Automated Diff (03/23/21 15:54) Occult Blood Stool (03/23/21 15:54) Comprehensive Metabolic Panel (03/23/21 15:56) Pantoprazole Injection (Protonix Injecti (03/23/21 16:15) Medications Given in ED Current Medications Medications Dose Ordered Sig/Nichole Route Start Time Stop Time Status Last Admin Dose Admin Pantoprazole 40 mg ONCE ONCE IV 03/23/21 16:15 03/23/21 16:16 DC 03/23/21 16:12 40 MG Vital Signs/I&O 03/23/21 15:44 Temp 36.3 Pulse 85 Resp 20 B/P (MAP) 192/94 (126) Pulse Ox 98 O2 Delivery Room Air Blood Pressure Mean: 126 Progress Progress Note : Time: 16:30 Progress Note Positive fecal occult test. Gave him some pantoprazole. Referenced the pathology results from his last colonoscopy showed 2 hyperplastic polyps. He may require repeat endoscopy. We will put him on some antacids if his h emoglobin is okay and having follow-up next week with Dr. Bobo. Departure Impression Primary Impression: Lower GI bleed Disposition: 01 HOME, SELF-CARE Condition: Stable Departure-Patient Inst. Decision time for Depature: 16:34 Referrals: JOSE BOBO CHAD C MD (PCP/Family) Primary Care Physician Patient Instructions: Bloody Stools, Adult (DC) Add. Discharge Instructions: Drink plenty of fluids. Take pantoprazole 40 mg daily to help reduce your acid content and thereby decrease irritation of the colon lining. I suspect there may be an AV, polyp or other malformation source of the bleed in your colon that will be discovered by endoscopy. Call Dr. Bobo and he will set you up for endoscopy as appropriate. Return to the nearest ER promptly if you begin to experience chest pain, severe shortness of air or other worrisome symptoms All discharge instructions reviewed with patient and/or family. Voiced understanding. Copy Copies To 1: JOSE BOBO TITUS J Mar 23, 2021 16:32
[2021-03-23 16:45] VITALS: BP 131/74
[2021-03-28] MEDS ORDERED: PANT40TA2 PO (14:39)
[2021-03-28] MEDS ORDERED: SUCR1TAB36 PO (14:39)
== END 2021-03-23 16:45 | disposition home or self-care (01) ==
LOC: EDUNIT# 15:40 → ER 15:41
DX: K92.2 Gastrointestinal hemorrhage, unspecified (principal); G47.30 Sleep apnea, unspecified; I10 Essential (primary) hypertension; E11.9 Type 2 diabetes mellitus without complications; Z79.84 Long term (current) use of oral hypoglycemic drugs; Z79.899 Other long term (current) drug therapy
CPT/HCPCS: 36415; 80053; 85025; 96374

== ENCOUNTER 2021-03-26 05:29 | Outpatient (RCR) | payer MEDICARE ==
[~2021-03-26] VITALS: Ht 183 cm; Wt 109.0 kg
== END 2021-03-26 11:05 | disposition home or self-care (01) ==
LOC: PREOP 05:29
PROVIDERS: ATTEND Surgery
DX: Z01.812 Encounter for preprocedural laboratory examination (principal); K62.5 Hemorrhage of anus and rectum; Z20.822 Contact with and (suspected) exposure to COVID-19
CPT/HCPCS: 87635

== ENCOUNTER 2021-03-28 12:56 | Day surgery (SDC) | payer MEDICARE ==
[~2021-03-28] VITALS: Ht 182.9 cm; Wt 112.6 kg
[2021-03-28] MEDS ORDERED: LACTATED RINGERS 1,000 ML IV ONE (12:59)
[2021-03-28] MEDS ORDERED: LACTATED RINGERS 1,000 ML IV STA (13:00)
[2021-03-28] MEDS ORDERED: HURRICAINE EXT TUBE (BENZOCAINE) XX PRN (13:00)
[2021-03-28 13:15] VITALS: BP 144/81
--- NOTE | 2021-03-28 13:19 | Progress Note-Pre Operative ---
Pre-Operative Progress Note H&P Reviewed The H&P was reviewed, patient examined and no changes noted. Date Seen by Provider: Mar 28, 2021 Time Seen by Provider: 13:19 Date H&P Reviewed: Mar 28, 2021 Time H&P Reviewed: 13:19 Pre-Operative Diagnosis: rectal bleeding, black tarry stools JOSE BOBO DO Mar 28, 2021 13:19
[2021-03-28] MEDS ORDERED: PROPOFOL INJECTION 50 ML IV ONE ×2 (13:33→13:51)
[2021-03-28 14:15] VITALS: BP 93/51
--- NOTE | 2021-03-28 14:17 | Anesthesia-General Post-Op ---
MAC Patient Condition Mental Status/LOC: Same as Preop Cardiovascular: Satisfactory Nausea/Vomiting: Absent Respiratory: Satisfactory Pain: Controlled Complications: Absent Post Op Complications Complications None Follow Up Care/Instructions Patient Instructions None needed. Anesthesiology Discharge Order Discharge Order Patient is doing well, no complaints, stable vital signs, no apparent adverse anesthesia problems. No complications reported per nursing. FARAZ MELLO CRNA Mar 28, 2021 14:17
[2021-03-28 14:20] VITALS: BP 90/50
[2021-03-28 14:25] VITALS: BP 106/59
--- NOTE | 2021-03-28 14:29 | Progress Note-Post Operative ---
Post-Operative Progess Note Surgeon (s)/It Systems Analyst (s) Surgeon JOSE BOBO DO It Systems Analyst: na Pre-Operative Diagnosis rectal bleeding, black tarry stools Post-Operative Diagnosis small hiatal, erosive esophagitis, duodenal polyp, diverticulosis Procedure & Operative Findings Date of Procedure 03/28/21 Procedure Performed/Findings egd c hot bx polypectomy duodenum, cold biopsy of antrum, ge colonoscopy Anesthesia Type per nurse charge rn Estimated Blood Loss Estimated blood loss (mL): none Specimens/Packing Specimens Removed duodenal polyp, antrum, ge JOSE BOBO DO Mar 28, 2021 14:29
[2021-03-28] MEDS ORDERED: SUCR1TAB36 PO (14:39)
[2021-03-28] MEDS ORDERED: PANT40TA2 PO (14:39)
--- NOTE | 2021-03-28 14:39 | Discharge Inst-Simple/Standard ---
Discharge Inst-Standard Discharge Medications New, Converted or Re-Newed RX: Transmitted to Pharmacy Patient Instructions/Follow Up Plan of Care/Instructions/FU: 2 weeks lexii Activity as Tolerated: Yes Discharge Diet: Regular Diet (high fiber) JOSE BOBO DO Mar 28, 2021 14:39
[2021-03-28 14:50] VITALS: BP 118/79
[2021-03-28 15:00] VITALS: BP 118/79
--- NOTE | 2021-03-28 20:33 | OPERATIVE REPORT ---
DATE OF SERVICE: 03/28/2021 PREOPERATIVE DIAGNOSIS: Bright red blood per rectum and blood per stools. POSTOPERATIVE DIAGNOSES: Reflux esophagitis, small hiatal hernia, duodenal polyp, diverticulosis. PROCEDURE: EGD with hot biopsy polypectomy of duodenal polyp and cold biopsies of the antrum and GE junction, colonoscopy. SURGEON: Chapincito Russell DO ANESTHESIA: Per MEDICAL SCIENTIFIC LIAISON. ESTIMATED BLOOD LOSS: None. COMPLICATIONS: None. INDICATIONS: The patient is a 71-year-old male who has been having bright red blood per rectum and black tarry stools. He understands risks and benefits of procedures and wishes to proceed. Consent was signed in the chart. DESCRIPTION OF PROCEDURE: The patient was taken to the endoscopy suite, placed in left recumbent position. Timeout was performed. Scope was inserted into the mouth, down the esophagus, stomach and into the duodenum without difficulty. A second portion with no polyps, masses or ulcerations, first portion with small polyps one inflamed and questionable history of appearance of maybe bleeding previously. Hot biopsy polypectomy was performed. Scope was then continuously retracted back into the stomach where it was further insufflated. No polyps, masses or ulcerations within the stomach and the antrum. Biopsy of the antrum was obtained. Scope was retroflexed noting a small hiatal hernia. Also an area of some inflammation where it appears to be maybe a small ulcer that healed. Scope was then returned to its normal position, slowly withdrawn to distal esophagus. GE junction had some inflammation and also probably small ulcer biopsies of the GE junction of this area were obtained. Scope was then slowly retracted back. No other polyps, masses or ulcerations. Digital rectal exam was performed. No palpable polyps, masses or ulcerations. Scope was inserted in the rectum, advanced all the way to cecum with minimal difficulty. Prep was adequate with irrigation and suction. Scope was then slowly retracted back. No polyps, masses or ulcerations within the cecum, ascending, transverse, descending and sigmoid colon. Throughout the colon, diverticulosis was present. Once in the rectum, scope was retroflexed noting no other pathology. Scope was returned to its normal position, slowly withdrawn until completely removed. The patient tolerated procedure well without any complications, taken to recovery room in stable condition. RECOMMENDATIONS: The patient will need a repeat colonoscopy on an as needed basis if benefits outweigh the risks. He has history of polyps, would recommend 5 years. If any issues before that, they will be seen at that time. The patient will be started on Protonix 40 mg daily and Carafate 1 gram four times a day and see how he is doing. He will follow up in the office in couple of weeks to discuss pathology results. Any change in condition, should be seen at that time. Job ID: [id number] DocumentID: [id number] Dictated Date: 03/28/2021 14:37:42 Varnish Maker Date: 03/28/2021 20:31:18 Dictated By: DO STANISLAW BLANK
== END 2021-03-28 15:00 | disposition home or self-care (01) ==
LOC: ENDO 12:56
PROVIDERS: ATTEND Surgery
DX: K21.00 Gastro-esophageal reflux disease with esophagitis, without bleeding (principal); K29.80 Duodenitis without bleeding; K31.7 Polyp of stomach and duodenum; K57.30 Diverticulosis of large intestine without perforation or abscess without bleeding; K44.9 Diaphragmatic hernia without obstruction or gangrene; K92.1 Melena; I10 Essential (primary) hypertension; G47.33 Obstructive sleep apnea (adult) (pediatric); Z99.89 Dependence on other enabling machines and devices; Z87.891 Personal history of nicotine dependence; E11.9 Type 2 diabetes mellitus without complications; E66.9 Obesity, unspecified; Z68.33 Body mass index [BMI] 33.0-33.9, adult; D69.6 Thrombocytopenia, unspecified; Z79.899 Other long term (current) drug therapy; Z79.84 Long term (current) use of oral hypoglycemic drugs
CPT/HCPCS: 88305

== ENCOUNTER 2021-12-20 18:55 | Emergency (ER) | payer MEDICARE ==
[~2021-12-20] VITALS: Ht 183 cm; Wt 109.0 kg
[~2021-12-20 18:55] MED LIST changes: +PANT40TA2 PO; +SUCR1TAB36 PO
[2021-12-20] MEDS ORDERED: SILD50TA48 (19:11)
[2021-12-20] MEDS ORDERED: FLUC150T41 (19:11)
[2021-12-20] MEDS ORDERED: HYDR453.3 (19:11)
[2021-12-20] MEDS ORDERED: NYST15CR35 (19:11)
[2021-12-20] MEDS ORDERED: RX-TRIMETH/SULFA. 160-800 MG (BACTRIM DS) TAB PPK#2 PO STA (19:20)
--- NOTE | 2021-12-20 19:20 | ED Integumentary General ---
General Chief Complaint: Skin/Wound Problems Stated Complaint: ABSCESS ON BUTTOCK Nursing Triage Note: left buttocks wound since 12/12/21. seen by pcp started on abx without improvement Source: patient History of Present Illness Date Seen by Provider: Dec 20, 2021 Time Seen by Provider: 19:11 Initial Comments PT ARRIVES VIA POV FROM HOME STATES HE HAS AN ABSCESS TO HIS RIGHT BUTTOCK FOR THE LAST WEEK NO DRAINAGE FROM THE AREA NO FEVER NO PROBLEMS WITH BM'S PT HAS HISTORY OF MULTIPLE ABSCESSES TO VARIOUS PARTS OF BODY, WITH MRSA CULTURED FROM PREVIOUS ABSCESSES--RESISTANT TO CLINDAMYCIN PT HAS NOT SOUGHT CARE UNTIL TODAY FOR THIS PROBLEM. HAS DOXYCYCLINE AT HOME AND HAS TAKEN A FEW PILLS WITHOUT IMPROVEMENT. PT IS UP TO DATE ON TETANUS VACCINE PCP: DR. HANS MCMILLAN Allergies and Home Medications Allergies Coded Allergies: No Known Drug Allergies (Unverified , 06/12/16) Patient Home Medication List Amlodipine Besylate (Amlodipine Besylate) 10 Mg Tablet, 10 MG PO DAILY, (Reported) Entered as Reported by: DALLAS BAHENA on 06/12/16 115 Amlodipine Besylate (Amlodipine Besylate) 5 Mg Tablet, 5 MG PO DAILY, (Reported) Entered as Reported by: DALLAS BAHENA on 06/12/16 1156 Benazepril HCl (Benazepril HCl) 20 Mg Tablet, 20 MG PO DAILY, (Reported) Entered as Reported by: DALLAS BAHENA on 06/12/16 1156 Fluconazole (Fluconazole) 150 Mg Tablet, (Reported) Entered as Reported by: OLVIN TRENT on 12/20/211910 Last Action: New Order Hydrocortisone (Hydrocortisone) 2.5 % Cream..g., (Reported) Entered as Reported by: OLVIN TRENT on 12/20/211910 Last Action: New Order Metformin HCl (Metformin HCl) 500 Mg Tablet, 500 MG PO DAILY, (Reported) Entered as Reported by: LAN RAMÍREZ on 04/12/19 151 Multivitamin (Daily Multiple Vitamin) 1 Each Tablet, 1 EACH PO DAILY, (Reported) Entered as Reported by: DALLAS BAHENA on 06/12/16 115 Naproxen (Naproxen) 500 Mg Tablet.dr, 500 MG PO BID Prescribed by: NIGEL NIELSEN on 12/20/211923 Nystatin (Nystatin) 100,000 Unit/Gram Cream..g., (Reported) Entered as Reported by: OLVIN TRENT on 12/20/211910 Last Action: New Order Pantoprazole Sodium (Protonix) 40 Mg Tablet.dr, 40 MG PO DAILY Prescribed by: JOSE BOBO on 03/28/21 143 Sildenafil Citrate (Sildenafil Citrate) 50 Mg Tablet, (Reported) Entered as Reported by: OLVIN TRENT on 12/20/211910 Last Action: New Order Sucralfate (Carafate) 1 Gm Tablet, 1 GM PO QID Prescribed by: JSOE BOBO on 03/28/21 143 Sulfamethoxazole/Trimethoprim (Bactrim Ds Tablet) 1 Each Tablet, 2 EACH PO BID Prescribed by: NIGEL NIELSEN on 12/20/211923 Tramadol HCl (Tramadol HCl) 50 Mg Tablet, 50 MG PO Q6H PRN for PAIN Prescribed by: NIGEL NIELSEN on 12/20/211924 Review of Systems Review of Systems Constitutional: no symptoms reported Musculoskeletal: see HPI Skin: see HPI Psychiatric/Neurological: No Symptoms Reported Past Kohzuxg-Akufrg-Vlzscd Hx Patient Social History Tobacco Use?: No Substance use?: No Alcohol Use?: No Pt feels they are or have been: No Immunizations Up To Date PED Vaccines UTD: Yes First/Initial COVID19 Vaccinat: x3 Second COVID19 Vaccination Wil: 06-13-20 Seasonal Allergies Seasonal Allergies: Yes Past Medical History Surgery/Hospitalization HX: htn, high cholesterol, luis m mountain spotted fever, skin abcesses Surgeries: Yes (COLONOSCOPY-polyps removed, ESWL;ABSCESS I&D'S) Renal Respiratory: Yes Pulmonary Embolism, Sleep Apnea Currently Using CPAP: No Cardiac: Yes High Cholesterol, Hypertension Neurological: No Reproductive Disorders: No Sexually Transmitted Disease: No HIV/AIDS: No Genitourinary: Yes Kidney Stones Gastrointestinal: Yes Gastroesophageal Reflux Musculoskeletal: Yes Degenerate Disk Disease, Chronic Back Pain Endocrine: Yes Diabetes, Non-Insulin dep HEENT: Yes Loss of Vision: Bilateral Hearing Impairment: Denies Cancer: No Psychosocial: No Integumentary: Yes (FOLICULITIS; ABSCESSES; MRSA; RMSF) Blood Disorders: Yes ("LOW PLATELETS"; RMSF) Adverse Reaction/Blood Tranf: No (N/A) Family Medical History Cancer 19 MOTHER (COLON CANCER THAT METASTICIZED TO LIVER) Cancer of colon 19 MOTHER Colon cancer Family history: Hypertension 19 MOTHER No Family History of: Abdominal aortic aneurysm [place]'s disease Alcoholism Aphasia Cataract Chest pain Congenital heart disease Congestive heart failure Cystic fibrosis Dementia Dysphagia Family history: Allergy Family history: Alzheimer's disease Family history: Arthritis Family history: Asthma Family history: Breast disease Family history: Cardiovascular disease Family history: Coronary thrombosis Family history: Diabetes mellitus Family history: Gastrointestinal disease Family history: Glaucoma Family history: Osteoporosis Family history: Thyroid disorder Headache Hearing loss Heart disease Hereditary disease History of - anemia History of - disorder History of - respiratory disease History of drug abuse Human immunodeficiency virus (HIV) seropositivity Hypercholesterolemia Infertile Kidney disease Malignant neoplasm of lung Myocardial infarction Parkinson's disease Prostate cancer Psychotic disorder Seizure disorder Stroke Tuberculosis Visual impairment Physical Exam Vital Signs Vital Signs - First Documented 12/20/21 19:07 Temp 36.8 Pulse 80 Resp 16 B/P (MAP) 149/81 (103) Pulse Ox 95 O2 Delivery Room Air Capillary Refill : Less Than 3 Seconds General Appearance: WD/WN, no apparent distress Skin: normal color, warm/dry, other (LEFT LOWER BUTTOCK WITH APPROXIMATELY 6X8 CM AREA OF ERYTHEMA, VERY FIRM INDURATION, WARMTH AND TENDERNESS, WITH 1 CM CENTRAL DARK AREA. NO POINTING, NO FLUCTUANCE. NO DRAINAGE. NO STREAKS. ANUS IS NOT INVOLVED. ) Progress/Results/Core Measures Results/Orders My Orders Orders - NIGEL NIELSEN DO Sulfamethoxazole/Trimet Ds Tab (Bactrim (12/20/21 19:30) Rx-Trimeth/Sulfameth Ds Tab (Rx-Bactrim/ (12/20/21 19:20) Rx-Naproxen (Rx-Naprosyn) (12/20/21 19:25) Rx-Tramadol Hcl (Rx-Ultram) (12/20/21 19:25) Medications Given in ED Current Medications Medications Dose Ordered Sig/Nichole Route Start Time Stop Time Status Last Admin Dose Admin Trimethoprim/ Sulfamethoxazole 2 ea ONCE ONCE PO 12/20/21 19:30 12/20/21 19:31 DC 12/20/21 19:35 2 EA Vital Signs/I&O 12/20/21 12/20/21 19:07 19:30 Temp 36.8 36.8 Pulse 80 80 Resp 16 16 B/P (MAP) 149/81 (103) 149/81 Pulse Ox 95 95 O2 Delivery Room Air Room Air Blood Pressure Mean: 103 Progress Progress Note : Progress Note OFFERED TO DO I&D OF THE AREA, AND PT DECLINES, AND WOULD LIKE TO TRY ANTIBIOTICS FIRST AND FOLLOW UP WITH DR. MCMILLAN IN OFFICE. PT HAS TOLERATED BACTRIM IN THE PAST, AND ON PRIOR C&S OF ABSCESSES, PT HAS GROWN OUT MRSA THAT IS SENSITIVE TO BACTRIM AND RESISTANT TO CLINDAMYCIN. Departure Impression Primary Impression: ABSCESS OR CELLULITIS OF LEFT BUTTOCK Additional Impression: Hx MRSA infection Disposition: HOME, SELF-CARE Condition: Stable Departure-Patient Inst. Decision time for Depature: 19:21 Referrals: HANS MCMILLAN MD (PCP/Family) Primary Care Physician Patient Instructions: MRSA (DC), Skin Abscess, How to Wash Your Hands Properly Add. Discharge Instructions: MOIST HEAT TO THE AREA AT 20 MINUTE INTERVALS FOLLOW UP WITH DR. MCMILLAN ON WEDNESDAY FOR FURTHER CARE RETURN TO ER IF WORSE All discharge instructions reviewed with patient and/or family. Voiced understanding. Scripts Tramadol HCl (Tramadol HCl) 50 Mg Tablet 50 MG PO Q6H PRN for PAIN for 3 Days, #15 TAB 0 Refills Prov: NIGEL NIELSEN DO 12/20/21 Naproxen (Naproxen) 500 Mg Tablet. 500 MG PO BID, #20 TAB Prov: NIGEL NIELSEN DO 12/20/21 Sulfamethoxazole/Trimethoprim (Bactrim Ds Tablet) 1 Each Tablet 2 EACH PO BID for 7 Days, #28 TAB Prov: NIGEL NIELSEN DO 12/20/21 NIGEL NIELSEN DO Dec 20, 2021 19:20
[2021-12-20] MEDS ORDERED: TRM50T PO (19:24)
[2021-12-20] MEDS ORDERED: SULF1TAB38 PO (19:24)
[2021-12-20] MEDS ORDERED: NAPR500T8 PO (19:24)
[2021-12-20] MEDS ORDERED: RX-NAPROXEN (NAPROSYN) 250 MG TAB PPK#4 PO STA (19:25)
[2021-12-20 19:30] VITALS: BP 149/81
[2021-12-20] MEDS ORDERED: TRIM/SULFAMETH 160/800 (SEPTRA DS) TAB PO ONE (19:30)
== END 2021-12-20 19:42 | disposition home or self-care (01) ==
LOC: EDUNIT# 18:55 → ER 18:57
DX: Z86.14 Personal history of Methicillin resistant Staphylococcus aureus infection (principal)
CPT/HCPCS: 99283

== ENCOUNTER 2022-01-31 15:05 | Emergency (ER) | payer MEDICARE ==
[~2022-01-31] VITALS: Ht 182 cm; Wt 107.0 kg
[~2022-01-31 15:05] MED LIST changes: +FLUC150T41; +HYDR453.3; +NAPR500T8 PO; +NYST15CR35; +SILD50TA48; +SULF1TAB38 PO; +TRM50T PO
--- NOTE | 2022-01-31 17:01 | Diagnostic Imaging Report ---
EXAMINATION: Chest 1 view HISTORY: shortness of air COMPARISON: None available. FINDINGS: Heart size and pulmonary vasculature are normal. Mild interstitial opacities in the lung bases. No pneumothorax or pleural effusion. The osseous structures are intact. IMPRESSION: 1. Mild opacities in the lung bases which could represent atelectasis, pulmonary edema or atypical infection. Dictated by: Dictated on workstation # [id number]
[2022-01-31] MEDS ORDERED: NIRM1TAB PO (17:31)
--- NOTE | 2022-01-31 17:31 | ED General ---
General Chief Complaint: COVID19 Suspect/Confirmed Stated Complaint: COVID +/CONGESTION/BODYACHES/COUGH Source of Information: Patient Exam Limitations: No Limitations (PATRICE FOSTER APRN) History of Present Illness Date Seen by Provider: Jan 31, 2022 Time Seen by Provider: 15:45 Initial Comments Patient is a 71-year-old male who presents to the emergency department with nasal congestion, bodyaches, and cough that began 3 to 4 days ago. Patient te sted positive for COVID today. Patient's is also being evaluated for similar symptoms after testing positive for COVID today as well. Patient states he feels like he is slowly getting better. Denies any chest pain. Has not taken anything for the symptoms today. States he has been able to get out and work in the yard some today. (PATRICE FOSTER APRN) Allergies and Home Medications Allergies Coded Allergies: No Known Drug Allergies (Unverified , 06/12/16) Patient Home Medication List Home Medication List Reviewed: Yes (PATRICE FOSTER APRN) Amlodipine Besylate (Amlodipine Besylate) 10 Mg Tablet, 10 MG PO DAILY, (Rep orted) Entered as Reported by: DALLAS BAHENA on 06/12/16 115 Amlodipine Besylate (Amlodipine Besylate) 5 Mg Tablet, 5 MG PO DAILY, (Reported) Entered as Reported by: DALLAS BAHENA on 06/12/16 115 Benazepril HCl (Benazepril HCl) 20 Mg Tablet, 20 MG PO DAILY, (Reported) Entered as Reported by: DALLAS BAHENA on 06/12/16 115 Fluconazole (Fluconazole) 150 Mg Tablet, (Reported) Entered as Reported by: OLVIN TRENT on 12/20/211910 Hydrocortisone (Hydrocortisone) 2.5 % Cream..g., (Reported) Entered as Reported by: OLVIN TRENT on 12/20/211910 Metformin HCl (Metformin HCl) 500 Mg Tablet, 500 MG PO DAILY, (Reported) Entered as Reported by: LAN RAMÍREZ on 04/12/19 151 Multivitamin (Daily Multiple Vitamin) 1 Each Tablet, 1 EACH PO DAILY, (Reported) Entered as Reported by: DALLAS BAHENA on 06/12/16 115 Naproxen (Naproxen) 500 Mg Tablet.dr, 500 MG PO BID Prescribed by: NIGEL NIELSEN on 12/20/211923 Nirmatrelvir/Ritonavir (Paxlovid 300-100 mg Pack (Eua)) 300 Mg (150 Mg X 2)-100 Mg Tab.ds.pk, 1 EACH PO BID Prescribed by: Patrice Foster on 01/31/22 1731 Nystatin (Nystatin) 100,000 Unit/Gram Cream..g., (Reported) Entered as Reported by: OLVIN TRENT on 12/20/211910 Pantoprazole Sodium (Protonix) 40 Mg Tablet.dr, 40 MG PO DAILY Prescribed by: JOSE BOBO on 03/28/21 143 Sildenafil Citrate (Sildenafil Citrate) 50 Mg Tablet, (Reported) Entered as Reported by: OLVIN TRENT on 12/20/211910 Sucralfate (Carafate) 1 Gm Tablet, 1 GM PO QID Prescribed by: JOSE BOBO on 03/28/21 143 Sulfamethoxazole/Trimethoprim (Bactrim Ds Tablet) 1 Each Tablet, 2 EACH PO BID Prescribed by: NIGEL NIELSEN on 12/20/211923 Tramadol HCl (Tramadol HCl) 50 Mg Tablet, 50 MG PO Q6H PRN for PAIN Prescribed by: NIGEL NIELSEN on 12/20/211924 Review of Systems Review of Systems Constitutional: no symptoms reported EENTM: no symptoms reported Respiratory: see HPI, cough Cardiovascular: no symptoms reported Gastrointestinal: no symptoms reported (PATRICE FOSTER APRN) Past Eotwolv-Ozcemi-Rhfnzo Hx Patient Social History Tobacco Use?: No Substance use?: No Alcohol Use?: No Pt feels they are or have been: No (PATRICE FOSTER APRN) Immunizations Up To Date PED Vaccines UTD: Yes First/Initial COVID19 Vaccinat: x3 Second COVID19 Vaccination Wil: x3 Third COVID19 Vaccination Date: x3 (PATRICE FOSTER APRN) Seasonal Allergies Seasonal Allergies: Yes (PATRICE FOSTER APRN) Past Medical History Surgery/Hospitalization HX: htn, high cholesterol, luis m mountain spotted fever, skin abcesses, LOW PLATLETS, DIABETES TYPE II Surgeries: Yes (COLONOSCOPY-polyps removed, ESWL;ABSCESS I&D'S) Renal Respiratory: Yes Pulmonary Embolism, Sleep Apnea Currently Using CPAP: No Cardiac: Yes High Cholesterol, Hypertension Neurological: No Reproductive Disorders: No Sexually Transmitted Disease: No HIV/AIDS: No Genitourinary: Yes Kidney Stones Gastrointestinal: Yes Gastroesophageal Reflux Musculoskeletal: Yes Degenerate Disk Disease, Chronic Back Pain Endocrine: Yes Diabetes, Non-Insulin dep HEENT: Yes Loss of Vision: Bilateral Hearing Impairment: Denies Cancer: No Psychosocial: No Integumentary: Yes (FOLICULITIS; ABSCESSES; MRSA; RMSF) Blood Disorders: Yes ("LOW PLATELETS"; RMSF) Adverse Reaction/Blood Tranf: No (N/A) (PATRICE FOSTER APRN) Family Medical History Cancer 19 MOTHER (COLON CANCER THAT METASTICIZED TO LIVER) Cancer of colon 19 MOTHER Colon cancer Family history: Hypertension 19 MOTHER No Family History of: Abdominal aortic aneurysm [place] disease Alcoholism Aphasia Cataract Chest pain Congenital heart disease Congestive heart failure Cystic fibrosis Dementia Dysphagia Family history: Allergy Family history: Alzheimer's disease Family history: Arthritis Family history: Asthma Family history: Breast disease Family history: Cardiovascular disease Family history: Coronary thrombosis Family history: Diabetes mellitus Family history: Gastrointestinal disease Family history: Glaucoma Family history: Osteoporosis Family history: Thyroid disorder Headache Hearing loss Heart disease Hereditary disease History of - anemia History of - disorder History of - respiratory disease History of drug abuse Human immunodeficiency virus (HIV) seropositivity Hypercholesterolemia Infertile Kidney disease Malignant neoplasm of lung Myocardial infarction Parkinson's disease Prostate cancer Psychotic disorder Seizure disorder Stroke Tuberculosis Visual impairment Physical Exam Vital Signs Vital Signs - First Documented 01/31/22 01/31/22 15:39 17:40 Temp 37.2 Pulse 79 Resp 19 B/P (MAP) 153/78 (103) Pulse Ox 97 O2 Delivery Room Air (ANANTH STEEN MD) Vital Signs Capillary Refill : Less Than 3 Seconds (PATRICE FOSTER APRN) Height, Weight, BMI Height: 6'0.00" Weight: 261lbs. 3.0oz. 118.153488sw; 32.00 BMI Method: General Appearance: No Apparent Distress, WD/WN HEENT: PERRL/EOMI, TMs Normal, Normal ENT Inspection, Pharynx Normal Neck: Full Range of Motion, Normal Inspection, Non Tender, Supple Respiratory: Chest Non Tender, Lungs Clear, Normal Breath Sounds, No Accessory Muscle Use, No Respiratory Distress Cardiovascular: Regular Rate, Rhythm Neurologic/Psychiatric: Alert, Oriented x3, No Motor/Sensory Deficits, Normal Mood/Affect, display decorator II-XII Norm as Tested Skin: Normal Color, Warm/Dry (PATRICE FOSTER APRN) Progress/Results/Core Measures Suspected Sepsis SIRS Temperature: Pulse: 79 Respiratory Rate: 19 Blood Pressure 153 /78 Mean: 103 (PATRICE FOSTER APRN) Results/Orders Lab Results Laboratory Tests Test 01/31/22 16:03 Range/Units Influenza Type A (RT-PCR) Not Detected Not Detecte Influenza Type B (RT-PCR) Not Detected Not Detecte SARS-CoV-2 RNA (RT-PCR) Detected H Not Detecte (ANANTH STEEN MD) Vital Signs/I&O 01/31/22 01/31/22 15:39 17:40 Temp 37.2 Pulse 79 70 Resp 19 20 B/P (MAP) 153/78 (103) 130/78 Pulse Ox 97 95 O2 Delivery Room Air (ANANTH STEEN MD) Vital Signs/I&O Capillary Refill : Less Than 3 Seconds (PATRICE FOSTER APRN) Blood Pressure Mean: 103 Progress Note : Progress Note Patient is nontoxic and well-hydrated on exam. No adventitious lung sounds or increased work of breathing noted. Vital signs are reassuring. Patient is awake alert and oriented answers all questions appropriately. No nuchal rigidity noted. COVID test positive here. Chest x-ray acutely negative. Discussed supportive care and anticipatory guidance. Follow-up with PCP. Return precautions for urgent symptomology discussed. Patient was given a prescription for Paxlovid. Patient verbalized understanding. (PATRICE FOSTER APRN) Departure Impression Primary Impression: COVID-19 Disposition: 01 HOME, SELF-CARE Condition: Stable Departure-Patient Inst. Decision time for Depature: 15:30 (PATRICE FOSTER APRN) Referrals: HANS MCMILLAN MD (PCP/Family) Primary Care Physician Patient Instructions: COVID-19 (DC) Scripts Nirmatrelvir/Ritonavir (Paxlovid 300-100 mg Pack (Eua)) 300 Mg (150 Mg X 2)-100 Mg Tab.ds.pk 1 EACH PO BID for 5 Days, #1 PKG Prov: PATRICE FOSTER APRN 01/31/22 ATTENDING PHYSICIAN NOTE: I was physically present as attending physician in the emergency department during the care of this patient, but I was not directly involved in the decision making or delivery of care for this patient. (ANANTH STEEN MD) PATRICE FOSTER APRN Jan 31, 2022 17:31 ANANTH STEEN MD Feb 02, 2022 21:38
[2022-01-31 17:40] VITALS: BP 130/78
== END 2022-01-31 17:40 | disposition home or self-care (01) ==
LOC: EDUNIT# 15:05 → ER 15:07
DX: U07.1 COVID-19 (principal)
CPT/HCPCS: 71045; 87636

== ENCOUNTER 2022-09-13 14:14 | Inpatient (IN) | payer MEDICARE ==
[~2022-09-13] VITALS: Ht 182.8 cm; Wt 112.1 kg
[2022-09-13] VITALS (15 sets, daily range): BP systolic 128–151; BP diastolic 66–89
[~2022-09-13 14:14] MED LIST changes: +NIRM1TAB PO
--- NOTE | 2022-09-13 14:37 | ED Respiratory ---
General Chief Complaint: Respiratory Problems Stated Complaint: SOA Nursing Triage Note: PT AMB TO RM 9 WITH CC OF SOB X6WKS THAT IS WORSE WITH WALKING, LEGS HURT, AND COUGHING. O2 SAT AT 99% RA. Source: patient Exam Limitations: no limitations History of Present Illness Date Seen by Provider: Sep 13, 2022 Time Seen by Provider: 14:25 Initial Comments 72-year-old male presents to the emergency department today for shortness of breath with exertion as well as leg cramping. He states symptoms onset was about 6 weeks ago. He states prior to this he was able to walk significant distances without any shortness of breath. Now he is only able to walk short distances without getting significantly winded. His symptoms do subside with rest after about 5 minutes. He denies any chest pain. Further he states that his bilateral legs will cramp severely if he ambulates more than a certain distance. This is relatively new in the last 6 weeks as well. He denies any fevers chills or cough. No abdominal pain or changes in bowel or bladder habits no significant cardiac history. He quit smoking 20 years ago. 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 All other systems reviewed and negative except documented per HPI. Voice recognition software was used to help create this chart Allergies and Home Medications Allergies Coded Allergies: No Known Drug Allergies (Unverified , 06/12/16) Patient Home Medication List Home Medication List Reviewed: Yes Amlodipine Besylate (Amlodipine Besylate) 10 Mg Tablet, 10 MG PO DAILY, (Reported) Entered as Reported by: DALLAS BAHENA on 06/12/16 115 Amlodipine Besylate (Amlodipine Besylate) 5 Mg Tablet, 5 MG PO DAILY, (Reported) Entered as Reported by: DALLAS BAHENA on 06/12/16 115 Benazepril HCl (Benazepril HCl) 20 Mg Tablet, 20 MG PO DAILY, (Reported) Entered as Reported by: DALLAS BAHENA on 06/12/16 115 Fluconazole (Fluconazole) 150 Mg Tablet, (Reported) Entered as Reported by: OLVIN TRENT on 12/20/211910 Hydrocortisone (Hydrocortisone) 2.5 % Cream..g., (Reported) Entered as Reported by: OLVIN TRENT on 12/20/211910 Metformin HCl (Metformin HCl) 500 Mg Tablet, 500 MG PO DAILY, (Reported) Entered as Reported by: LAN RAMÍREZ on 04/12/19 1513 Multivitamin (Daily Multiple Vitamin) 1 Each Tablet, 1 EACH PO DAILY, (Reported) Entered as Reported by: DALLAS BAHENA on 06/12/16 1157 Naproxen (Naproxen) 500 Mg Tablet.dr, 500 MG PO BID Prescribed by: NIGEL NIELSEN on 12/20/211923 Nirmatrelvir/Ritonavir (Paxlovid 300-100 mg Pack (Eua)) 300 Mg (150 Mg X 2)-100 Mg Tab.ds.pk, 1 EACH PO BID Prescribed by: Patrice Foster on 01/31/22 173 Nystatin (Nystatin) 100,000 Unit/Gram Cream..g., (Reported) Entered as Reported by: OLVIN TRENT on 12/20/211910 Pantoprazole Sodium (Protonix) 40 Mg Tablet.dr, 40 MG PO DAILY Prescribed by: JOSE BOBO on 03/28/21 1439 Sildenafil Citrate (Sildenafil Citrate) 50 Mg Tablet, (Reported) Entered as Reported by: OLVIN TRENT on 12/20/211910 Sucralfate (Carafate) 1 Gm Tablet, 1 GM PO QID Prescribed by: JOSE BOBO on 03/28/21 143 Sulfamethoxazole/Trimethoprim (Bactrim Ds Tablet) 1 Each Tablet, 2 EACH PO BID Prescribed by: NIGEL NIELSEN on 12/20/211923 Tramadol HCl (Tramadol HCl) 50 Mg Tablet, 50 MG PO Q6H PRN for PAIN Prescribed by: NIGEL NIELSEN on 12/20/211924 Review of Systems Review of Systems Constitutional: see HPI Past Lrsopnp-Negpsm-Iugmrk Hx Patient Social History Tobacco Use?: Yes Smoking Status: Former Smoker Substance use?: No Alcohol Use?: No Immunizations Up To Date PED Vaccines UTD: Yes First/Initial COVID19 Vaccinat: x3 Second COVID19 Vaccination Wil: x3 Third COVID19 Vaccination Date: x3 Seasonal Allergies Seasonal Allergies: Yes Past Medical History Surgery/Hospitalization HX: htn, high cholesterol, [place] spotted fever, skin abcesses, LOW PLATLETS, DIABETES TYPE II Surgeries: Yes (COLONOSCOPY-polyps removed, ESWL;ABSCESS I&D'S) Renal Respiratory: Yes Pulmonary Embolism, Sleep Apnea Currently Using CPAP: No Cardiac: Yes High Cholesterol, Hypertension Neurological: No Reproductive Disorders: No Sexually Transmitted Disease: No HIV/AIDS: No Genitourinary: Yes Kidney Stones Gastrointestinal: Yes Gastroesophageal Reflux Musculoskeletal: Yes Degenerate Disk Disease, Chronic Back Pain Endocrine: Yes Diabetes, Non-Insulin dep HEENT: Yes Loss of Vision: Bilateral Hearing Impairment: Denies Cancer: No Psychosocial: No Integumentary: Yes (FOLICULITIS; ABSCESSES; MRSA; RMSF) Blood Disorders: Yes ("LOW PLATELETS"; RMSF) Adverse Reaction/Blood Tranf: No (N/A) Family Medical History Cancer 19 MOTHER (COLON CANCER THAT METASTICIZED TO LIVER) Cancer of colon 19 MOTHER Colon cancer Family history: Hypertension 19 MOTHER No Family History of: Abdominal aortic aneurysm [place]'s disease Alcoholism Aphasia Cataract Chest pain Congenital heart disease Congestive heart failure Cystic fibrosis Dementia Dysphagia Family history: Allergy Family history: Alzheimer's disease Family history: Arthritis Family history: Asthma Family history: Breast disease Family history: Cardiovascular disease Family history: Coronary thrombosis Family history: Diabetes mellitus Family history: Gastrointestinal disease Family history: Glaucoma Family history: Osteoporosis Family history: Thyroid disorder Headache Hearing loss Heart disease Hereditary disease History of - anemia History of - disorder History of - respiratory disease History of drug abuse Human immunodeficiency virus (HIV) seropositivity Hypercholesterolemia Infertile Kidney disease Malignant neoplasm of lung Myocardial infarction Parkinson's disease Prostate cancer Psychotic disorder Seizure disorder Stroke Tuberculosis Visual impairment Physical Exam Vital Signs - First Documented 09/13/22 15:55 Temp 37.1 Resp 16 Capillary Refill : Height: 6'0.00" Weight: 261lbs. 3.0oz. 118.296025ra; 33.00 BMI Method: General Appearance: WD/WN, no apparent distress Eyes: Bilateral Eye Normal Inspection, Bilateral Eye PERRL, Bilateral Eye EOMI HEENT: normal ENT inspection, pharynx normal Neck: non-tender, supple Respiratory: chest non-tender, lungs clear, normal breath sounds, no respiratory distress, no accessory muscle use Cardiovascular: regular rate, rhythm, no murmur Gastrointestinal: normal bowel sounds, non tender, soft, no organomegaly, no pulsatile mass Extremities: normal range of motion, non-tender, normal inspection, no pedal edema, no calf tenderness, normal capillary refill Neurologic/Psychiatric: alert, normal mood/affect, oriented x 3 Skin: warm/dry Progress/Results/Core Measures Suspected Sepsis SIRS Temperature: Pulse: 73 Respiratory Rate: Laboratory Tests 09/13/22 14:22: White Blood Count 16.0H Blood Pressure 163 /81 Mean: 108 Laboratory Tests 09/13/22 14:22: Creatinine 1.33H, Platelet Count 126L, Total Bilirubin 1.2H Results/Orders Lab Results Laboratory Tests Test 09/13/22 14:22 Range/Units White Blood Count 16.0 H 4.3-11.0 10^3/uL Red Blood Count 2.98 L 4.30-5.52 10^6/uL Hemoglobin 5.6 *L 13.3-17.7 g/dL Hematocrit 20 *L 40-54 % Mean Corpuscular Volume 67 L 80-99 fL Mean Corpuscular Hemoglobin 19 L 25-34 pg Mean Corpuscular Hemoglobin Concent 28 L 32-36 g/dL Red Cell Distribution Width 25.9 H 10.0-14.5 % Platelet Count 126 L 130-400 10^3/uL Mean Platelet Volume 9.0-12.2 fL Immature Granulocyte % (Auto) 5 % Neutrophils (%) (Auto) 63 42-75 % Lymphocytes (%) (Auto) 12 12-44 % Monocytes (%) (Auto) 20 H 0-12 % Eosinophils (%) (Auto) 0 0-10 % Basophils (%) (Auto) 0 0-10 % Neutrophils # (Auto) 10.1 H 1.8-7.8 10^3/uL Lymphocytes # (Auto) 1.9 1.0-4.0 10^3/uL Monocytes # (Auto) 3.2 H 0.0-1.0 10^3/uL Eosinophils # (Auto) 0.1 0.0-0.3 10^3/uL Basophils # (Auto) 0.0 0.0-0.1 10^3/uL Immature Granulocyte # (Auto) 0.7 H 0.0-0.1 10^3/uL Neutrophils % (Manual) 76 % Lymphocytes % (Manual) 12 % Monocytes % (Manual) 10 % Eosinophils % (Manual) 0 % Basophils % (Manual) 0 % Band Neutrophils 2 % Percent Immature Platelet Fraction 25.3 H 0.0-7.6 % Polychromasia Hypochromasia SLIGHT Anisocytosis MODERATE Microcytosis SLIGHT Sodium Level 139 135-145 MMOL/L Potassium Level 4.2 3.6-5.0 MMOL/L Chloride Level 107 98-107 MMOL/L Carbon Dioxide Level 22 21-32 MMOL/L Anion Gap 10 5-14 MMOL/L Blood Urea Nitrogen 20 H 7-18 MG/DL Creatinine 1.33 H 0.60-1.30 MG/DL Estimat Glomerular Filtration Rate 58 BUN/Creatinine Ratio 15 Glucose Level 139 H 70-105 MG/DL Calcium Level 8.9 8.5-10.1 MG/DL Corrected Calcium 9.3 8.5-10.1 MG/DL Magnesium Level 2.0 1.6-2.4 MG/DL Total Bilirubin 1.2 H 0.1-1.0 MG/DL Aspartate Amino Transf (AST/SGOT) 16 5-34 U/L Alanine Aminotransferase (ALT/SGPT) 12 0-55 U/L Alkaline Phosphatase 61 40-136 U/L Myoglobin 38.2 10.0-92.0 NG/ML Troponin I < 0.028 <0.028 NG/ML Total Protein 8.4 H 6.4-8.2 GM/DL Albumin 3.5 3.2-4.5 GM/DL My Orders Orders - DEEPIKA YOST DO Cbc With Automated Diff (09/13/22 14:33) Magnesium (09/13/22 14:33) Chest 1 View, Ap/Pa Only (09/13/22 14:33) Ekg Tracing (09/13/22 14:33) Comprehensive Metabolic Panel (09/13/22 14:33) Myoglobin Serum (09/13/22 14:33) Ed Iv/Invasive Line Start (09/13/22 14:33) Troponin I [place] (09/13/22 14:33) Manual Differential (09/13/22 14:22) Type And Screen (09/13/22 14:54) Consent-Obtain Consent For (09/13/22 15:06) Monitor S/S Transfusion Reacti (09/13/22 15:06) Red Cells Leukocytes Reduced (09/13/22 15:06) Ns Iv 500 Ml (Sodium Chloride 0.9%) (09/13/22 15:30) Ed Admission (Communication) (09/13/22 15:49) Vital Signs/I&O 09/13/22 09/13/22 09/13/22 09/13/22 14:19 14:19 15:55 16:00 Temp 37.1 37.3 Pulse 73 68 94 Resp 16 16 B/P (MAP) 163/81 (108) 143/66 142/78 Pulse Ox 99 95 94 O2 Delivery Room Air Room Air Room Air Room Air 09/13/22 09/13/22 16:05 16:10 Temp 37.1 37.0 Pulse 68 68 Resp 18 18 B/P (MAP) 147/74 148/76 Pulse Ox 95 97 O2 Delivery Room Air Room Air Capillary Refill : Blood Pressure Mean: 108 ECG Comment Sinus rhythm with a rate of 68 bpm. Normal intervals. Normal axis. T wave inversions in lead III. Some mild ST depressions in lead V4 5 and 6. No STEMI. No ectopy. Critical Care Note Critical Care Total Time (minutes) 60 Departure Communication (Admissions) 1505: Spoke to Dr Abel, Heme/Onc at [facility] in [place]. States is OK to transfuse even with risk of leukemia. Recommends transfer to tertiary care center (specifically mentions ) to r/o acute leukemia. Patient is hemodynamically stable. Resting in bed he has no symptoms however when he walked back to the bed he did get significantly winded. His hemoglobin comes back at 5.6. This is especially concerning given that a couple weeks ago he had blood work at his doctor's office but was completely normal. His tells me that he has been told he likely has leukemia but has had 2 different attempts at bone marrow biopsy which were unsuccessful. 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 I spoke with hematology who recommends transfer to tertiary care center for possible acute leukemia. He does state that it is safe to transfuse him, recommends 2 units PRBCs. I spoken to the patient and his about the plan of care and they are in agreement to transfer and blood transfusion. 1545: Spoke to Dr Woody at med oncology. He is not certain that this is acute leukemia. They are at critical capacity and as such, request the patient be admitted here for further workup. If confirmed to have acute leukemia, then they would recommend transfer, howevere he does not believe this is likely at this time. 1550: Spoke to Dr Singh, accepts admission to our facility. Patient is currently receiving first unit of blood. I have ordered a total of 2 units. He will be admitted inpatient to cardiac step-down. Impression Primary Impression: Microcytic anemia Disposition: ADMITTED INPATIENT Condition: Stable Departure-Patient Inst. Referrals: HANS MCMILLAN MD (PCP/Family) Primary Care Physician DEEPIKA YOST DO Sep 13, 2022 14:37
[2022-09-13 14:41] LABS: EOSINOPHILS # (AUTO) 0.1 10^3/uL (0.0-0.3); LYMPHOCYTES % (AUTO) 12 % (12-44)
[2022-09-13 14:43] LABS: ALBUMIN 3.5 GM/DL (3.2-4.5); BASOPHILS % (AUTO) 0 % (0-10); CHLORIDE 107 MMOL/L (98-107); EOSINOPHILS % (AUTO) 0 % (0-10); LYMPHOCYTES # (AUTO) 1.9 10^3/uL (1.0-4.0); MEAN CORPUSCULAR HEMOGLOBIN 19 pg (25-34); MEAN CORPUSCULAR HGB CONC 28 g/dL (32-36); MEAN CORPUSCULAR VOLUME 67 fL (80-99); MONOCYTES # (AUTO) 3.2 10^3/uL (0.0-1.0); MONOCYTES % (AUTO) 20 % (0-12); NEUTROPHILS # (AUTO) 10.1 10^3/uL (1.8-7.8); NEUTROPHILS % (AUTO) 63 % (42-75); PLATELET COUNT 126 10^3/uL (130-400); POTASSIUM 4.2 MMOL/L (3.6-5.0); SODIUM 139 MMOL/L (135-145)
[2022-09-13 14:44] LABS: CALCIUM 8.9 MG/DL (8.5-10.1)
[2022-09-13 14:45] LABS: GLUCOSE 139 MG/DL (70-105); TOTAL PROTEIN 8.4 GM/DL (6.4-8.2)
[2022-09-13 14:46] LABS: CARBON DIOXIDE 22 MMOL/L (21-32); HEMATOCRIT 20 % (40-54); HEMOGLOBIN 5.6 g/dL (13.3-17.7)
[2022-09-13 14:47] LABS: BILIRUBIN,TOTAL 1.2 MG/DL (0.1-1.0)
--- NOTE | 2022-09-13 14:48 | Diagnostic Imaging Report ---
EXAMINATION: Chest 1 view HISTORY: Chest pain. COMPARISON: 01/31/2022. FINDINGS: The lung volumes are normal. No focal consolidation is seen. No large pleural effusion or pneumothorax is seen. The cardiomediastinal silhouette is prominent with central pulmonary vascular congestion. No acute osseous abnormality is seen. IMPRESSION: 1. Cardiomegaly with central pulmonary vascular congestion. This is similar to the prior exam. Dictated by: Dictated on workstation # [id number]
[2022-09-13 14:49] LABS: ALKALINE PHOSPHATASE 61 U/L (40-136); CREATININE SERUM 1.33 MG/DL (0.60-1.30); GFR ESTIMATED 58
[2022-09-13 14:50] LABS: BUN/CREATININE RATIO 15
[2022-09-13 14:52] LABS: ALANINE AMINOTRANSFERASE 12 U/L (0-55)
[2022-09-13 15:02] LABS: BAND NEUTROPHILS 2 %; BASOPHILS % (MANUAL) 0 %; EOSINOPHILS % (MANUAL) 0 %; LYMPHOCYTES % (MANUAL) 12 %; MONOCYTES % (MANUAL) 10 %; NEUTROPHILS % (MANUAL) 76 %
[2022-09-13 15:03] LABS: ANISOCYTOSIS MODERATE; HYPOCHROMASIA SLIGHT; MICROCYTOSIS SLIGHT
[2022-09-13] MEDS ORDERED: NS IV 500 ML 500 ML IV STA (15:30)
[2022-09-13] MEDS ORDERED: polyethylene glycoL POWDER 17 GM (MIRALAX) PACK PO PRN (17:00)
[2022-09-13] MEDS ORDERED: LACTULOSE SYRUP 10GM/15ML (ENULOSE) 30ML UDC PO PRN (17:00)
[2022-09-13] MEDS ORDERED: MILK OF MAGNESIA 400 MG/5 ML 30 ML UDC PO PRN (17:00)
[2022-09-13] MEDS ORDERED: ONDANSETRON 4 MG (ZOFRAN) ORAL DISSOLVE TAB PO PRN (17:00)
[2022-09-13] MEDS ORDERED: ONDANSETRON 4 MG/2 ML (SDV) Z0FRAN IV PRN (17:00)
[2022-09-13] MEDS ORDERED: ACETAMINOPHEN 325 MG TABLET PO PRN (17:00)
[2022-09-13] MEDS ORDERED: BISACODYL 10 MG SUPP (DULCOLAX) PR PRN (17:00)
[2022-09-13] MEDS ORDERED: ANTACID SUSP 30 ML UDC (MYLANTA) PO PRN (17:00)
[2022-09-13] MEDS ORDERED: CALCIUM CARBONATE 500 MG (TUMS) TAB.CHEW PO PRN (17:00)
[2022-09-13] MEDS ORDERED: MELATONIN 3 MG TABLET PO PRN (17:00)
[2022-09-13] MEDS: SENNOSIDES 8.6 MG (SENOKOT) TAB PO SCH (21:25)
[2022-09-13] MEDS: DOCUSATE SODIUM 100 MG (COLACE) CAP PO SCH (21:25)
[2022-09-13 23:40] LABS: HEMOGLOBIN 7.1 g/dL (13.3-17.7)
[2022-09-14] VITALS (10 sets, daily range): BP systolic 112–152; BP diastolic 66–88
[2022-09-14 04:06] LABS: EOSINOPHILS % (AUTO) 0 % (0-10); HEMATOCRIT 25 % (40-54)
[2022-09-14 04:08] LABS: ABSOLUTE RETIC # 93 10e9/uL (24-90); BASOPHILS # (AUTO) 0.1 10^3/uL (0.0-0.1); BASOPHILS % (AUTO) 0 % (0-10); HEMOGLOBIN 7.4 g/dL (13.3-17.7); LYMPHOCYTES # (AUTO) 1.7 10^3/uL (1.0-4.0); LYMPHOCYTES % (AUTO) 14 % (12-44); MEAN CORPUSCULAR HEMOGLOBIN 21 pg (25-34); MEAN CORPUSCULAR HGB CONC 30 g/dL (32-36); MEAN CORPUSCULAR VOLUME 71 fL (80-99); MONOCYTES # (AUTO) 2.2 10^3/uL (0.0-1.0); MONOCYTES % (AUTO) 18 % (0-12); NEUTROPHILS # (AUTO) 7.8 10^3/uL (1.8-7.8); NEUTROPHILS % (AUTO) 63 % (42-75); PLATELET COUNT 105 10^3/uL (130-400); RETICULOCYTE % 2.65 % (0.50-2.40); WHITE BLOOD COUNT 12.5 10^3/uL (4.3-11.0)
[2022-09-14 04:29] LABS: CALCIUM 8.6 MG/DL (8.5-10.1); CREATININE SERUM 1.17 MG/DL (0.60-1.30); POTASSIUM 3.9 MMOL/L (3.6-5.0)
[2022-09-14 05:25] LABS: LYMPHOCYTES % (MANUAL) 19 %; METAMYELOCYTES % 1 %; MONOCYTES % (MANUAL) 10 %; NEUTROPHILS % (MANUAL) 69 %; NUCLEATED RED BLOOD CELLS 2; PROLYMPHOCYTE % 1 %
[2022-09-14 05:26] LABS: ANISOCYTOSIS MODERATE; HYPOCHROMASIA MODERATE; MICROCYTOSIS MODERATE; POLYCHROMASIA SLIGHT
[2022-09-14 05:28] LABS: PLATELET CLUMPS NO CLUMPS OBSERVED
--- NOTE | 2022-09-14 08:51 | History & Physical-Hospitalist ---
History of Present Illness HPI/Chief Complaint Patient is a 72-year-old male with a past medical history of diabetes and hypertension who presented to the emergency department due to dyspnea on exertion. He has had an interesting 5-year history of issues with his work. He reports 5 years ago he had a colonoscopy and then overdid it following and started bleeding from his polypectomy sites. He was admitted for couple of days and then following that he developed what he thought was poison umair that did not respond to 3 different doses of steroids. He then saw a naturalization examiner who did a biopsy and told him he have cancer. He saw Dr. Grier and had a tick panel done and a bone marrow biopsy and the bone marrow biopsy was reportedly normal per patient but his tick panel revealed [place] spotted fever. He was treated with doxycycline and symptoms resolved completely including his skin issues. Around 2 years ago he noticed that he was passing blood in stool and so saw Dr. Russell for colonoscopy and EGD and was told he had bleeding ulcers. He was started on Protonix and Carafate and referred to a GI doctor. He was also seen by Dr. Montoya in this timeframe and had labs done that were reportedly normal. Around 6 weeks ago he noticed that he was getting more short of breath than normal. [place] but he has been unable to carry his minnows lately. Yesterday he was at [facility] and was hardly able to catch his breath and so decided to seek evaluation in the emergency department. He was found to be anemic with a hemoglobin of 5.6 and was admitted for further management. This morning he reports feeling better and after transfusion his hemoglobin is up to 7.4 Source: patient Date Seen 09/14/22 Time Seen by a Provider: 08:47 Attending Physician Elias Montoya MD PCP Admitting Physician: Vickie Singh MD Attending Physician: Vickie Singh MD Referring Physician Date of Admission Sep 13, 2022 at 16:32 Home Medications & Allergies Home Medications Reviewed patient Home Medication Reconciliation performed by pharmacy medication reconciliations clean room technician and/or nursing. Patients Allergies have been reviewed. Allergies Allergies Coded Allergies No Known Drug Allergies (Unverified06/12/16) Past Lvgoxsj-Yrtgdc-Jkezcl Hx Patient Social History Marrital Status: Employed/Student: retired Tobacco Use?: No Smoking Status: Former Smoker Smokeless Tobacco Frequency: Never a User Use of E-Cig and/or Vaping Low: Never a User Substance use?: No Alcohol Use?: No Pt feels they are or have been: No Immunizations Up To Date First/Initial COVID19 Vaccinat: x3 Second COVID19 Vaccination Wil: x3 Tetanus Booster (TDap): Unknown PED Vaccines UTD: Yes Seasonal Allergies Seasonal Allergies: Yes Current Status Advance Directives: No Communicates: Verbally Primary Language: Zimbabwean Preferred Spoken Language: Zimbabwean Is interpretation needed?: No Sensory deficits: Vision impairment Implanted or Applied Medical D: None Past Medical History Surgeries: Renal Pulmonary Embolism, Sleep Apnea Currently Using CPAP: No High Cholesterol, Hypertension Sexually Transmitted Disease: No HIV/AIDS: No Kidney Stones Gastroesophageal Reflux Degenerate Disk Disease, Chronic Back Pain Diabetes, Non-Insulin dep Loss of Vision: Bilateral Hearing Impairment: Denies Blood Disorders: Yes ("LOW PLATELETS"; RMSF) Adverse Reaction/Blood Tranf: No (N/A) Family Medical History Cancer 19 MOTHER (COLON CANCER THAT METASTICIZED TO LIVER) Cancer of colon 19 MOTHER Colon cancer Family history: Hypertension 19 MOTHER No Family History of: Abdominal aortic aneurysm Sal's disease Alcoholism Aphasia Cataract Chest pain Congenital heart disease Congestive heart failure Cystic fibrosis Dementia Dysphagia Family history: Allergy Family history: Alzheimer's disease Family history: Arthritis Family history: Asthma Family history: Breast disease Family history: Cardiovascular disease Family history: Coronary thrombosis Family history: Diabetes mellitus Family history: Gastrointestinal disease Family history: Glaucoma Family history: Osteoporosis Family history: Thyroid disorder Headache Hearing loss Heart disease Hereditary disease History of - anemia History of - disorder History of - respiratory disease History of drug abuse Human immunodeficiency virus (HIV) seropositivity Hypercholesterolemia Infertile Kidney disease Malignant neoplasm of lung Myocardial infarction Parkinson's disease Prostate cancer Psychotic disorder Seizure disorder Stroke Tuberculosis Visual impairment Review of Systems Constitutional: see HPI Physical Exam Physical Exam Vital Signs Vital Signs - First Documented 09/13/22 15:55 Temp 37.1 Resp 16 Capillary Refill : Height, Weight, BMI Height: 6'0.00" Weight: 261lbs. 3.0oz. 118.842589el; 34.68 BMI Method: General Appearance: No Apparent Distress, WD/WN Respiratory: Lungs Clear, No Respiratory Distress Cardiovascular: Regular Rate, Rhythm, No Murmur Gastrointestinal: Normal Bowel Sounds, Soft Neurologic/Psychiatric: Alert, Oriented x3 Results Results/Procedures Labs Laboratory Tests 09/13/22 14:22 09/13/22 23:32 09/14/22 03:28 Patient resulted labs reviewed. Assessment/Plan Admission Diagnosis Anemia Admission Status: Inpatient Order (span 2 midnights) Reason for Inpatient Admission: see below Assessment and Plan Microcytic Anemia Etiology unclear at this time FOBT ordered Iron studies, B12, Folate Dr Villalobos consulted, appreciate recs He reports he is gong to look into old bone marrow biopsy reports (only flow cytometry available from 2 years ago) Trend HTN BP well controlled, trend Resume home meds when med rec done NIDDMII Only on metformin Was on Ozempic but only took one dose a few weeks ago SARAH CHAMBERLAIN MD Sep 14, 2022 08:51
[2022-09-14] MEDS: SENNOSIDES 8.6 MG (SENOKOT) TAB PO SCH ×2 (10:20→20:52)
[2022-09-14] MEDS: DOCUSATE SODIUM 100 MG (COLACE) CAP PO SCH ×2 (10:20→20:52)
[2022-09-14] MEDS ORDERED: METF-399 PO (11:54)
[2022-09-14] MEDS ORDERED: CYAN500T8 PO (12:06)
[2022-09-14] MEDS ORDERED: METF-397 PO (12:06)
[2022-09-14] MEDS ORDERED: PANT40TA52 PO (12:06)
--- NOTE | 2022-09-14 19:47 | CONSULTATION REPORT ---
DATE OF SERVICE: 09/14/2022 The patient is admitted to room 420. REQUESTING PHYSICIAN: Donna Melton MD IMPRESSION: 1. A 72-year-old male admitted to the hospital with significant anemia and symptoms related to this. 2. Status post PRBC transfusion with improvement in symptoms. 3. Previous history of bone marrow aspiration and biopsy, which was relatively unremarkable. 4. Occult blood positive. RECOMMENDATIONS: 1. Obtain serum iron studies from initial blood sample obtained at the emergency room. 2. PRBC transfusion to keep the hemoglobin more than 7 g/dL. 3. Surgical consultation for EGD and colonoscopy because of positive occult blood. If this is normal, the patient will need capsule endoscopy to evaluate the small intestine. 4. Follow up with me as an outpatient after the endoscopies are completed. HISTORY OF PRESENT ILLNESS: The patient is a 72-year-old male who was admitted to the hospital with dyspnea on exertion. He was found to be significantly anemic with hemoglobin in the 5 g/dL range and was admitted to the hospital. He received PRBC transfusion with improvement in hemoglobin to more than 7 g/dL and is feeling better. The patient had an occult blood tested in his stools and was just reported as positive. He gave history of a positive Cologuard in the past and had a colonoscopy by Dr. Russell. He has had abnormal blood counts in the past and has had bone marrow aspiration and biopsies done with the aspiration being dry and cytogenetics could not be completed. He is feeling better today and able to ambulate in the hallway without assistance. He still has mild dyspnea on exertion, which is baseline for him. He denied any obvious hematochezia or melena. No other bleeding or bruising. He has had palpitations and chest discomfort prior to admission. He has a cardiology appointment scheduled with Dr. Landeros in [place]. PAST MEDICAL HISTORY: Significant for [place] spotted fever, diagnosed in 2015 and treated. Questionable mycosis fungoides from a skin biopsy with negative staging studies. The patient had a repeat biopsy done at , which was not consistent with mycosis fungoides. Longstanding thrombocytopenia dating back to 2014 with the two bone marrow examinations in 2014 and 2019 showing no etiology. Obstructive sleep apnea and obesity. Hypertension. SOCIAL HISTORY: The patient is and lives in [ ] [place]. 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 He has two biological and two stepdaughters, all of whom live close by. He has a [id number] history of tobacco use and quit in 2005. No alcohol or recreational drug use. No significant exposure to chemicals that the patient knows of. FAMILY HISTORY: Significant for his mother who was diagnosed with colon cancer at 67 years of age. Maternal grandmother was diagnosed with colon cancer at 70 years of age. Maternal half-sister from her mother's side had colon cancer at 67 years of age. The patient himself has had colon polyps removed in the past. No other major medical problems in the family that the patient knows of. REVIEW OF SYSTEMS: Significant for dyspnea on exertion and significant fatigue. He had palpitations prior to admission, which has subsided now. Activity level is limited, but stable. Appetite is good and weight stable. He normally denied any diarrhea, constipation, hematochezia or melena. No new lumps or masses. No new bony aches or pains. No headaches or visual changes. No tingling, numbness or weakness of the extremities. PHYSICAL EXAMINATION: GENERAL: Today showed an elderly male, obese, awake and oriented, in no acute distress. VITAL SIGNS: His temperature was 36.3, pulse rate of 82, respirations 18, blood pressure 151/80 with a pulse oximetry showing 96% on room air. HEENT: Normocephalic with male pattern baldness, extraocular muscles intact, conjunctivae pale, oral mucosa moist. NECK: Supple, with no JVD. NODES: No cervical, supraclavicular or axillary lymphadenopathy palpable. CHEST: Symmetrical. Lungs are fairly clear to auscultation without wheezes or rales. CARDIOVASCULAR: Regular in rate and rhythm. No murmurs or gallops heard. ABDOMEN: Obese with mild tenderness in the epigastric area without guarding or rebound. No hepatosplenomegaly or other masses palpable. EXTREMITIES: Showed no petechia or ecchymosis. Trace edema around ankles. NEUROLOGIC: Grossly intact without focal motor deficits. CBC done yesterday at the emergency room showed white count of 16.0, hemoglobin 5.6, MCV 67, and platelet count 126,000 with a neutrophil count 10.1, lymphocyte count 1.9 and monocyte count 3.2. Repeat CBC done today morning showed WBC 12.5, hemoglobin 7.4, platelet count 105,000 with a neutrophil count 7.8, lymphocyte count 1.7 and monocyte count 2.2. CMP done at the Emergency Room showed normal electrolytes. BUN was 20 and creatinine 1.33 with GFR 58 mL per minute. Nonfasting glucose was 139. Liver function studies were normal except total bilirubin level of 1.2. BMP done today showed relatively normal electrolytes with BUN of 18 and creatinine 1.17 with GFR 67 mL per minute. Serum iron studies are pending along with B12 and folate levels. Thank you for allowing me to participate in this patient's care. I will follow the patient with you and make appropriate recommendations. Job ID: [id number] DocumentID: [id number] Dictated Date: 09/14/2022 19:00:56 Computer Aided Design Technician Date: 09/14/2022 19:45:00 Dictated By: ROSI WINKLER MD
[2022-09-15 03:41] VITALS: BP 133/78
[2022-09-15 05:27] LABS: MEAN CORPUSCULAR VOLUME 71 fL (80-99)
[2022-09-15 05:29] LABS: HEMATOCRIT 24 % (40-54); HEMOGLOBIN 7.2 g/dL (13.3-17.7); MEAN CORPUSCULAR HEMOGLOBIN 21 pg (25-34); MEAN CORPUSCULAR HGB CONC 30 g/dL (32-36); PLATELET COUNT 98 10^3/uL (130-400); WHITE BLOOD COUNT 9.9 10^3/uL (4.3-11.0)
[2022-09-15 05:42] LABS: CALCIUM 8.3 MG/DL (8.5-10.1); CREATININE SERUM 1.15 MG/DL (0.60-1.30)
[2022-09-15] MEDS ORDERED: metFORMIN 500 MG (GLUCOPHAGE) TAB PO SCH (07:00)
[2022-09-15] MEDS: DOCUSATE SODIUM 100 MG (COLACE) CAP PO SCH (07:36)
[2022-09-15] MEDS: SENNOSIDES 8.6 MG (SENOKOT) TAB PO SCH (07:36)
[2022-09-15 08:32] VITALS: BP 155/73
--- NOTE | 2022-09-15 08:36 | Consultation - Surgery ---
JOSE ESPINOZA 09/15/22 0836: History of Present Illness History of Present Illness Patient Consulted On(aravind/time) 09/15/22 08:31 Date Seen by Provider: Sep 15, 2022 Time Seen by Provider: 08:25 History of Present Illness Patient is seen this morning sitting down and watching TV. He is a excellent historian of recent and past health issues. He says that the reason for his current visit started about six weeks ago when his legs began cramping when he was walking and he would get tired quickly. He presented to the ED yesterday because he became short of breath and thought he should seek medical attention. He states that he has had stomach issues since he was diagnosed with [place] Spotted Fever 5 years prior and there is no connection to anything that he does that makes it better or worse. He says that he has a history of diverticulitis that he can usually take pepto bismol for and it will help with his lower GI pains but it has not worked recently. He states that he had a couple ticks on him 2 weeks prior that he took some old doxycycline for, but states that he would not take it with water, he would just swallow them down. He says that Dr. Bobo did a colonoscopy on him 2 yrs prior and found ulcers and polyps during his EGD and Colonoscopy. He says that all of his biopsies came back negative at that time. He says that he has not noticed blood in his stools or black stools in the past. He states that he still takes the Protonix as prescribed by Dr. Bobo but does not take the Kerafate. He says that he feels he could "run up and down the parking lot" since getting his blood transfusion yesterday. Allergies and Home Medications Allergies Coded Allergies: No Known Drug Allergies (Unverified , 06/12/16) Patient Home Medication List Amlodipine Besylate (Amlodipine Besylate) 10 Mg Tablet, 10 MG PO DAILY, (Reported) Entered as Reported by: DALLAS BAHENA on 06/12/16 1156 Last Action: Continued Amlodipine Besylate (Amlodipine Besylate) 5 Mg Tablet, 5 MG PO DAILY, (Reported) Entered as Reported by: DALLAS BAHENA on 06/12/16 1156 Last Action: Continued Benazepril HCl (Benazepril HCl) 20 Mg Tablet, 20 MG PO DAILY, (Reported) Entered as Reported by: DALLAS BAHENA on 06/12/161155 Last Action: Converted Cyanocobalamin (Vitamin B-12) (Vitamin B-12) 500 Mcg Tablet, 500 MCG PO DAILY, (Reported) Entered as Reported by: WILLIAM RIVERA on 09/14/221205 Last Action: Reviewed Metformin HCl (Metformin HCl) 500 Mg Tablet, 1,000 MG PO DAILY, (Reported) Entered as Reported by: WILLIAM RIVERA on 09/14/221205 Last Action: Continued Pantoprazole Sodium (Pantoprazole Sodium) 40 Mg Tablet.dr, 40 MG PO DAILY, (Reported) Entered as Reported by: WILLIAM RIVERA on 09/14/221205 Last Action: Reviewed Discontinued Medications Fluconazole (Fluconazole) 150 Mg Tablet, (Reported) Discontinued Reason: No Longer Taking Entered as Reported by: OLVIN TRENT on 12/20/211910 Last Action: Discontinued Hydrocortisone (Hydrocortisone) 2.5 % Cream..g., (Reported) Discontinued Reason: No Longer Taking Entered as Reported by: OLVIN TRENT on 12/20/211910 Last Action: Discontinued Metformin HCl (Metformin HCl) 500 Mg Tablet, 500 MG PO DAILY, (Reported) Discontinued Reason: Prescription changed Entered as Reported by: LAN RAMÍREZ on 04/12/19 1513 Metformin HCl (Metformin HCl) 1,000 Mg Tablet, 1,000 MG PO DAILY Discontinued Reason: No Longer Taking Prescribed by: FRANCY DAVILA on 09/14/221153 Last Action: Discontinued Multivitamin (Daily Multiple Vitamin) 1 Each Tablet, 1 EACH PO DAILY, (Reported) Discontinued Reason: No Longer Taking Entered as Reported by: DALLAS BAHENA on 06/12/161156 Last Action: Discontinued Naproxen (Naproxen) 500 Mg Tablet.dr, 500 MG PO BID Discontinued Reason: No Longer Taking Prescribed by: NIGEL NIELSEN on 12/20/211923 Last Action: Discontinued Nirmatrelvir/Ritonavir (Paxlovid 300-100 mg Pack (Eua)) 300 Mg (150 Mg X 2)-100 Mg Tab.ds.pk, 1 EACH PO BID Discontinued Reason: No Longer Taking Prescribed by: Patrice Foster on 11/26/22 1731 Last Action: Discontinued Nystatin (Nystatin) 100,000 Unit/Gram Cream..g., (Reported) Discontinued Reason: No Longer Taking Entered as Reported by: OLVIN TRENT on 12/20/211910 Last Action: Discontinued Pantoprazole Sodium (Protonix) 40 Mg Tablet.dr, 40 MG PO DAILY Discontinued Reason: No Longer Taking Prescribed by: JOSE BOBO on 03/28/211438 Last Action: Discontinued Sildenafil Citrate (Sildenafil Citrate) 50 Mg Tablet, (Reported) Discontinued Reason: No Longer Taking Entered as Reported by: OLVIN TRENT on 12/20/211910 Last Action: Discontinued Sucralfate (Carafate) 1 Gm Tablet, 1 GM PO QID Discontinued Reason: No Longer Taking Prescribed by: JOSE BOBO on 03/28/211438 Last Action: Discontinued Sulfamethoxazole/Trimethoprim (Bactrim Ds Tablet) 1 Each Tablet, 2 EACH PO BID Discontinued Reason: No Longer Taking Prescribed by: NIGEL NIELSEN on 12/20/211923 Last Action: Discontinued Tramadol HCl (Tramadol HCl) 50 Mg Tablet, 50 MG PO Q6H PRN for PAIN Discontinued Reason: No Longer Taking Prescribed by: NIGEL NIELSEN on 12/20/211924 Last Action: Discontinued Past Nyvekcd-Jqhdal-Qpjmtn Hx Patient Social History Smoking Status: Former Smoker Former Smoker, Quit: Mar 24, 2005 Type Used: Cigarettes 2nd Hand Smoke Exposure: No Recent Hopitalizations: No Alcohol Use?: No Immunizations Up To Date PED Vaccines UTD: Yes Seasonal Allergies Seasonal Allergies: Yes Surgeries History of Surgeries: Yes (COLONOSCOPY-polyps removed, ESWL;ABSCESS I&D'S) Surgeries: Renal Respiratory History of Respiratory Disorde: Yes Respiratory Disorders: Pulmonary Embolism, Sleep Apnea Cardiovascular History of Cardiac Disorders: Yes Cardiac Disorders: High Cholesterol, Hypertension Neurological History of Neurological Disord: No Reproductive System Hx Reproductive Disorders: No Sexually Transmitted Disease: No HIV/AIDS: No Genitourinary History of Genitourinary Disor: Yes Genitourinary Disorders: Kidney Stones Gastrointestinal History of Gastrointestinal Di: Yes Gastrointestinal Disorders: Gastroesophageal Reflux Musculoskeletal History of Musculoskeletal Dis: Yes Musculoskeletal Disorders: Degenerate Disk Disease, Chronic Back Pain Endocrine History of Endocrine Disorders: Yes Endocrine Disorders: Diabetes, Non-Insulin dep HEENT History of HEENT Disorders: Yes HEENT Disorders: Dysphagia Loss of Vision: Bilateral Hearing Impairment: Denies Cancer History of Cancer: No Psychosocial History of Psychiatric Problem: No Integumentary History of Skin or Integumenta: Yes (FOLICULITIS; ABSCESSES; MRSA; RMSF) Blood Transfusions History of Blood Disorders: Yes ("LOW PLATELETS"; RMSF) Adverse Reaction to a Blood Tr: No (N/A) Family Medical History Significant Family History: Heart Disease (denies), COPD (denies), DVT/PE (denies), GI Disease (mother had colon cancer) Family Medial History: Cancer 19 MOTHER (COLON CANCER THAT METASTICIZED TO LIVER) Cancer of colon 19 MOTHER Colon cancer Family history: Hypertension 19 MOTHER No Family History of: Abdominal aortic aneurysm Roswell's disease Alcoholism Aphasia Cataract Chest pain Congenital heart disease Congestive heart failure Cystic fibrosis Dementia Dysphagia Family history: Allergy Family history: Alzheimer's disease Family history: Arthritis Family history: Asthma Family history: Breast disease Family history: Cardiovascular disease Family history: Coronary thrombosis Family history: Diabetes mellitus Family history: Gastrointestinal disease Family history: Glaucoma Family history: Osteoporosis Family history: Thyroid disorder Headache Hearing loss Heart disease Hereditary disease History of - anemia History of - disorder History of - respiratory disease History of drug abuse Human immunodeficiency virus (HIV) seropositivity Hypercholesterolemia Infertile Kidney disease Malignant neoplasm of lung Myocardial infarction Parkinson's disease Prostate cancer Psychotic disorder Seizure disorder Stroke Tuberculosis Visual impairment Review of Systems-General Constitutional: No chills, No diaphoresis, No dizziness EENTM: hearing loss; No blurred vision, No eye pain Respiratory: No cough, No dyspnea on exertion, No phlegm Cardiovascular: No chest pain, No edema, No palpitations Gastrointestinal: abdominal pain (lower abdomen that is diffuse. ); No constipation, No diarrhea, No nausea, No vomiting Genitourinary: No dysuria, No frequency, No hematuria Musculoskeletal: back pain (chronic), muscle pain (in legs) Skin: No dryness, No lesions Psychiatric/Neurological: Denies Anxiety, Denies Depressed Physical Exam-General Problems Physical Exam Vital Signs Vital Signs - First Documented 09/13/22 15:55 Temp 37.1 Resp 16 Capillary Refill : General Appearance: WD/WN, no apparent distress Eyes: Bilateral Eye PERRL, Bilateral Eye EOMI HEENT: PERRL/EOMI Neck: non-tender, supple Respiratory: lungs clear, no respiratory distress, no accessory muscle use; No crackles, No rales, No wheezing Cardiovascular: regular rate, rhythm, no edema, no gallop, no murmur Gastrointestinal: soft, guarding (consious to lower abdomen), tenderness Rectal: deferred Back: no CVA tenderness, no vertebral tenderness Extremities: no pedal edema, calf tenderness (of right leg) Neurologic/Psychiatric: alert, normal mood/affect, oriented x 3 Data Review Labs Laboratory Tests 09/14/22 10:51: Glucometer 169H 09/14/22 14:44: Stool Occult Blood Immunoassay POSITIVEH 09/14/22 15:34: Lyme Disease Screen IgG & IgM Ab 0.23, Lyme Antibody Interpretation Negative, [place] Antibody <1:20 09/14/22 16:32: Glucometer 98 09/14/22 20:13: Glucometer 160H 09/15/22 05:12: White Blood Count 9.9, Red Blood Count 3.39L, Hemoglobin 7.2L, Hematocrit 24L, Mean Corpuscular Volume 71L, Mean Corpuscular Hemoglobin 21L, Mean Corpuscular Hemoglobin Concent 30L, Red Cell Distribution Width 27.3H, Platelet Count 98L, Mean Platelet Volume , Percent Immature Platelet Fraction 26.9H, Sodium Level 137, Potassium Level 4.0, Chloride Level 107, Carbon Dioxide Level 22, Anion Gap 8, Blood Urea Nitrogen 14, Creatinine 1.15, Estimat Glomerular Filtration Rate 68, BUN/Creatinine Ratio 12, Glucose Level 112H, Calcium Level 8.3L 09/15/22 05:22: Glucometer 105 Assessment/Plan Assessment/Plan Assessment/Plan Microcytic Anemia HTN Shortness of Breath Patients hemoglobin wendy to 7.4 once transfused with PRBC's. His Hemoglobin in May was 10.3 at that time. He is currently not short of breath. He has went 2 years without a colonoscopy and EGD and with prior findings, he was suppose to have another in 3 more years. He would most likely benefit from an upper and lower GI scope to look for the source of his bleeding. Plan is to continue to ambulate up and down the halls, control pain management and antacids and BP medications. CHU GOODEN DO 09/15/22 1325: History of Present Illness History of Present Illness Time Seen by Provider: 12:01 History of Present Illness Surgery asked to consult regarding Anemia and rectal bleed. Pt states he has seen some bloodwith BMs. His main complaint is the burning pain he has in the left lower quadrant. He states most of the pain started recently after he came back from [place]; when he was having constant diarrhea. He states since that time it has never gotten better. He saw a GI in [place], but said "that adam didn't help at all, he didn't even examine me". He did see recently, but asked me to "be a second opinion" and do the procedure for him. Allergies and Home Medications Allergies Coded Allergies: No Known Drug Allergies (Unverified , 06/12/16) Patient Home Medication List Home Medication List Reviewed: Yes Amlodipine Besylate (Amlodipine Besylate) 10 Mg Tablet, 10 MG PO DAILY, (Reported) Entered as Reported by: DALLAS BAHENA on 06/12/161155 Last Action: Continued Amlodipine Besylate (Amlodipine Besylate) 5 Mg Tablet, 5 MG PO DAILY, (Reported) Entered as Reported by: DALLAS BAHENA on 06/12/161155 Last Action: Continued Benazepril HCl (Benazepril HCl) 20 Mg Tablet, 20 MG PO DAILY, (Reported) Entered as Reported by: DALLAS BAHENA on 06/12/161155 Last Action: Converted Cyanocobalamin (Vitamin B-12) (Vitamin B-12) 500 Mcg Tablet, 500 MCG PO DAILY, (Reported) Entered as Reported by: WILLIAM RIVERA on 09/14/221205 Last Action: Reviewed Metformin HCl (Metformin HCl) 500 Mg Tablet, 1,000 MG PO DAILY, (Reported) Entered as Reported by: WILLIAM RIVERA on 09/14/221205 Last Action: Continued Pantoprazole Sodium (Pantoprazole Sodium) 40 Mg Tablet.dr, 40 MG PO DAILY, (Reported) Entered as Reported by: WILLIAM RIVERA on 09/14/221205 Last Action: Reviewed Discontinued Medications Fluconazole (Fluconazole) 150 Mg Tablet, (Reported) Discontinued Reason: No Longer Taking Entered as Reported by: OLVIN TRENT on 12/20/211910 Last Action: Discontinued Hydrocortisone (Hydrocortisone) 2.5 % Cream..g., (Reported) Discontinued Reason: No Longer Taking Entered as Reported by: OLVIN TRENT on 12/20/211910 Last Action: Discontinued Metformin HCl (Metformin HCl) 500 Mg Tablet, 500 MG PO DAILY, (Reported) Discontinued Reason: Prescription changed Entered as Reported by: LAN RAMÍREZ on 04/12/19 1513 Metformin HCl (Metformin HCl) 1,000 Mg Tablet, 1,000 MG PO DAILY Discontinued Reason: No Longer Taking Prescribed by: FRANCY DAVILA on 09/14/22 1154 Last Action: Discontinued Multivitamin (Daily Multiple Vitamin) 1 Each Tablet, 1 EACH PO DAILY, (Reported) Discontinued Reason: No Longer Taking Entered as Reported by: DALLAS BAHENA on 06/12/16 1157 Last Action: Discontinued Naproxen (Naproxen) 500 Mg Tablet.dr, 500 MG PO BID Discontinued Reason: No Longer Taking Prescribed by: NIGLE NIELSEN on 12/20/211923 Last Action: Discontinued Nirmatrelvir/Ritonavir (Paxlovid 300-100 mg Pack (Eua)) 300 Mg (150 Mg X 2)-100 Mg Tab.ds.pk, 1 EACH PO BID Discontinued Reason: No Longer Taking Prescribed by: Patrice Foster on 01/31/22 173 Last Action: Discontinued Nystatin (Nystatin) 100,000 Unit/Gram Cream..g., (Reported) Discontinued Reason: No Longer Taking Entered as Reported by: OLVIN TRENT on 12/20/211910 Last Action: Discontinued Pantoprazole Sodium (Protonix) 40 Mg Tablet.dr, 40 MG PO DAILY Discontinued Reason: No Longer Taking Prescribed by: JOSE BOBO on 03/28/21 143 Last Action: Discontinued Sildenafil Citrate (Sildenafil Citrate) 50 Mg Tablet, (Reported) Discontinued Reason: No Longer Taking Entered as Reported by: OLVIN TRENT on 12/20/211910 Last Action: Discontinued Sucralfate (Carafate) 1 Gm Tablet, 1 GM PO QID Discontinued Reason: No Longer Taking Prescribed by: JOSE BOBO on 03/28/211438 Last Action: Discontinued Sulfamethoxazole/Trimethoprim (Bactrim Ds Tablet) 1 Each Tablet, 2 EACH PO BID Discontinued Reason: No Longer Taking Prescribed by: NIGEL NIELSEN on 12/20/211923 Last Action: Discontinued Tramadol HCl (Tramadol HCl) 50 Mg Tablet, 50 MG PO Q6H PRN for PAIN Discontinued Reason: No Longer Taking Prescribed by: NIGEL NIELSEN on 12/20/211924 Last Action: Discontinued Past Tegarmj-Mmnypl-Tfzubd Hx Patient Social History Smoking Status: Former Smoker Alcohol Use?: Yes Seasonal Allergies Seasonal Allergies: No Surgeries History of Surgeries: Yes Surgeries: Renal Respiratory History of Respiratory Disorde: Yes Respiratory Disorders: Pulmonary Embolism, Sleep Apnea Cardiovascular History of Cardiac Disorders: Yes Cardiac Disorders: High Cholesterol, Hypertension Neurological History of Neurological Disord: No Genitourinary History of Genitourinary Disor: Yes Genitourinary Disorders: Kidney Stones Gastrointestinal History of Gastrointestinal Di: Yes Gastrointestinal Disorders: Gastroesophageal Reflux, Gastrointestinal Bleed, Ulcer Musculoskeletal History of Musculoskeletal Dis: Yes Musculoskeletal Disorders: Arthritis, Chronic Back Pain HEENT History of HEENT Disorders: Yes HEENT Disorders: Dysphagia Loss of Vision: Denies Hearing Impairment: Hard of Hearing Cancer History of Cancer: Yes Cancer: Leukemia Psychosocial History of Psychiatric Problem: No Integumentary History of Skin or Integumenta: No Family Medical History Significant Family History: Heart Disease (denies), COPD (denies), DVT/PE (denies), GI Disease (mother had colon cancer) Family Medial History: Cancer 19 MOTHER (COLON CANCER THAT METASTICIZED TO LIVER) Cancer of colon 19 MOTHER Colon cancer Family history: Hypertension 19 MOTHER No Family History of: Abdominal aortic aneurysm [place]'s disease Alcoholism Aphasia Cataract Chest pain Congenital heart disease Congestive heart failure Cystic fibrosis Dementia Dysphagia Family history: Allergy Family history: Alzheimer's disease Family history: Arthritis Family history: Asthma Family history: Breast disease Family history: Cardiovascular disease Family history: Coronary thrombosis Family history: Diabetes mellitus Family history: Gastrointestinal disease Family history: Glaucoma Family history: Osteoporosis Family history: Thyroid disorder Headache Hearing loss Heart disease Hereditary disease History of - anemia History of - disorder History of - respiratory disease History of drug abuse Human immunodeficiency virus (HIV) seropositivity Hypercholesterolemia Infertile Kidney disease Malignant neoplasm of lung Myocardial infarction Parkinson's disease Prostate cancer Psychotic disorder Seizure disorder Stroke Tuberculosis Visual impairment Review of Systems-General Constitutional: No chills, No diaphoresis, No dizziness; weakness EENTM: hearing loss; No blurred vision, No eye pain, No epistaxis Respiratory: No cough, No dyspnea on exertion, No phlegm Cardiovascular: No chest pain, No edema, No palpitations Gastrointestinal: abdominal pain (lower abdomen that is diffuse. ); No constipation; diarrhea; No jaundice, No nausea, No vomiting Genitourinary: No dysuria, No frequency, No hematuria Musculoskeletal: back pain (chronic), muscle pain (in legs) Skin: No dryness, No lesions Psychiatric/Neurological: Denies Anxiety, Denies Depressed, Denies Seizure, Denies Tremors Physical Exam-General Problems Physical Exam General Appearance: WD/WN, no apparent distress, obese Eyes: Bilateral Eye PERRL, Bilateral Eye EOMI HEENT: pharynx normal; No scleral icterus (R), No scleral icterus (L) Neck: non-tender, supple Respiratory: lungs clear, normal breath sounds, no respiratory distress, no accessory muscle use Cardiovascular: regular rate, rhythm, no murmur Gastrointestinal: soft, no organomegaly, guarding (voluntary in lower abdomen), tenderness, hernia Rectal: deferred Back: no CVA tenderness, no vertebral tenderness Extremities: no pedal edema, calf tenderness (of right leg) Neurologic/Psychiatric: head of talent management II-XII nml as tested, alert, normal mood/affect, oriented x 3 (umbilical - incarcerated) Skin: normal color, warm/dry Lymphatic: no adenopathy (neck, axilla, groin) Assessment/Plan Assessment/Plan Assessment/Plan Microcytic Anemia Rectal bleed HTN Shortness of Breath Patients hemoglobin wendy to 7.4 once transfused with PRBC's and he felt much better. His Hemoglobin in May was 10.3 at that time. He is currently not short of breath. He has went 2 years without a colonoscopy and EGD and with prior findings, he was suppose to have another in 3 more years. He would most likely benefit from an upper and lower GI scope to look for the source of his bleeding; will schedule this as an outpt. Plan is to continue to ambulate up and down the halls, control pain management and antacids and BP medications. Supervisory-Addendum Brief Verification & Attestation Participated in pt care: history, MDM, physical Personally performed: exam, history, MDM, supervision of care Care discussed with: Medical Student Procedures: n/a Verification and Attestation of Medical Student E/M Service A PA student performed and documented this service. I then reviewed and verified all information documented by the medical student and made modifications to such information, when appropriate. I personally performed a physical exam, medical decision making and then discussed any differences between the notes and made revisions as necessary to create one note. Chu Gooden , 09/15/22 , 13:32 JOSE ESPINOZA Sep 15, 2022 08:36 CHU GOODEN DO Sep 15, 2022 13:25
[2022-09-15] MEDS ORDERED: NON-FORMULARY MEDICATION 1 EA EA (Benazepril HCl 20 MG) PO SCH (09:00)
[2022-09-15] MEDS ORDERED: amLODIPine 10 MG (NORVASC) TAB PO SCH (09:00)
[2022-09-15] MEDS ORDERED: lisINopril 20 MG (PRINIVIL) TABLET PO SCH (09:00)
[2022-09-15] MEDS ORDERED: amLODIPine 5 MG (NORVASC) TAB PO SCH (09:00)
--- NOTE | 2022-09-15 09:51 | Discharge Inst-Simple/Standard ---
Discharge Inst-Standard Patient Instructions/Follow Up Plan of Care/Instructions/FU: Please continue to take your medications as written. Please follow up with your primary care doctor to follow up this hospital stay. Activity as Tolerated: Yes Discharge Diet: No Restrictions Return to The Hospital For: Chest pain, shortness of breath, dark or bloody stools, fever, weakness, if you feel you are getting worse. SARAH CHAMBERLAIN MD Sep 15, 2022 09:51
--- NOTE | 2022-09-15 10:38 | Discharge Summary ---
Diagnosis/Chief Complaint Date of Admission Sep 13, 2022 at 16:32 Date of Discharge Discharge Date: Sep 14, 2022 Admission Diagnosis Anemia Primary Care Elias Montoya MD Discharge Summary Discharge Physical Exam Allergies: Coded Allergies: No Known Drug Allergies (Unverified , 06/12/16) Vitals & I&Os Vital Signs Date Time Temp Pulse Resp B/P (MAP) Pulse Ox O2 Delivery O2 Flow Rate FiO2 09/15/22 12:01 36.5 71 18 142/78 (99) 95 Room Air General Appearance: No Apparent Distress, WD/WN Respiratory: Lungs Clear, No Respiratory Distress Cardiovascular: Regular Rate, Rhythm, No Murmur Gastrointestinal: Normal Bowel Sounds, Soft Neurologic/Psychiatric: Alert, Oriented x3 Hospital Course Patient was admitted to the hospital secondary to severe anemia. He was found to have a hemoglobin of 5.6 down from 13 in May. He denied any dark or bloody stools but a fecal occult was positive. Hematology was consulted due to thrombocytopenia as well. Initially there was concern from a consulting it senior software engineer java that he may have acute leukemia but after review Dr. Rambo banegas this was unlikely. He did have multiple recent tick bites and so a tick panel was ordered but tickborne illness was thought to be unlikely so doxycycline was not initiated. We recommend endoscopic evaluation. Surgery was consulted for this. Patient has a long awaited appointment with Dr. Landeros tomorrow September 16 so elected to pursue outpatient follow-up for EGD and colonosco py with Dr. Banks. His hemoglobin remained stable after 2 units of blood. His symptoms were nearly resolved. He is to follow-up with Dr. Landeros tomorrow as already scheduled, with Dr. Banks on September 21, and with Dr. Ricks following that. I did call and update his primary care physician, Dr. Elias Montoya, to update him of the admission and current pending work-up. He is to follow-up with Dr. Montoya in 1 to 2 weeks to follow-up this hospital stay. Labs (last 24 hrs) Laboratory Tests 09/14/22 14:44: Stool Occult Blood Immunoassay POSITIVEH 09/14/22 15:34: Lyme Disease Screen IgG & IgM Ab 0.23, Lyme Antibody Interpretation Negative, [place] Antibody <1:20 09/14/22 16:32: Glucometer 98 09/14/22 20:13: Glucometer 160H 09/15/22 05:12: White Blood Count 9.9, Red Blood Count 3.39L, Hemoglobin 7.2L, Hematocrit 24L, Mean Corpuscular Volume 71L, Mean Corpuscular Hemoglobin 21L, Mean Corpuscular Hemoglobin Concent 30L, Red Cell Distribution Width 27.3H, Platelet Count 98L, Mean Platelet Volume , Percent Immature Platelet Fraction 26.9H, Sodium Level 137, Potassium Level 4.0, Chloride Level 107, Carbon Dioxide Level 22, Anion Gap 8, Blood Urea Nitrogen 14, Creatinine 1.15, Estimat Glomerular Filtration Rate 68, BUN/Creatinine Ratio 12, Glucose Level 112H, Calcium Level 8.3L 09/15/22 05:22: Glucometer 105 09/15/22 11:58: Glucometer 94 Patient resulted labs reviewed. Pending Labs Laboratory Tests 09/15/22 05:12: White Blood Count 9.9, Red Blood Count 3.39, Hemoglobin 7.2, Hematocrit 24, Mean Corpuscular Volume 71, Mean Corpuscular Hemoglobin 21, Mean Corpuscular Hemoglobin Concent 30, Red Cell Distribution Width 27.3, Platelet Count 98, Mean Platelet Volume , Percent Immature Platelet Fraction 26.9, Sodium Level 137, Potassium Level 4.0, Chloride Level 107, Carbon Dioxide Level 22, Anion Gap 8, Blood Urea Nitrogen 14, Creatinine 1.15, Estimat Glomerular Filtration Rate 68, BUN/Creatinine Ratio 12, Glucose Level 112, Calcium Level 8.3 09/15/22 05:22: Glucometer 105 09/15/22 11:58: Glucometer 94 Discussion & Recommendations Discharge Planning: >30 minutes discharge planning Discharge Home Medications: Active Scripts Active Reported Vitamin B-12 (Cyanocobalamin (Vitamin B-12)) 500 Mcg Tablet 500 Mcg PO DAILY Pantoprazole Sodium 40 Mg Tablet.dr 40 Mg PO DAILY Metformin HCl 500 Mg Tablet 1,000 Mg PO DAILY TAKES 2 (500MG) TABS Benazepril HCl 20 Mg Tablet 20 Mg PO DAILY Amlodipine Besylate 5 Mg Tablet 5 Mg PO DAILY TAKES 5MG +10MG TOGETHER TO EQUAL 15MG DAILY Amlodipine Besylate 10 Mg Tablet 10 Mg PO DAILY TAKES 5MG +10MG TOGETHER TO EQUAL 15MG DAILY Instructions to patient/family Please see electronic discharge instructions given to patient. SARAH CHAMBERLAIN MD Sep 15, 2022 10:38
[2022-09-15 12:01] VITALS: BP 142/78
[2022-09-15 15:45] VITALS: BP 142/78
== END 2022-09-15 14:10 | disposition home or self-care (01) | DRG 812 ==
LOC: EDUNIT# 14:14 → ER 14:16 → ICU 16:32 → 4TH 09-14 14:00
PROVIDERS: ADMIT Internal Medicine; ATTEND Internal Medicine
DX: D50.9 Iron deficiency anemia, unspecified (principal); Z79.84 Long term (current) use of oral hypoglycemic drugs; Z79.899 Other long term (current) drug therapy; Z87.891 Personal history of nicotine dependence; I10 Essential (primary) hypertension; E78.00 Pure hypercholesterolemia, unspecified; E11.9 Type 2 diabetes mellitus without complications; Z86.711 Personal history of pulmonary embolism; K21.9 Gastro-esophageal reflux disease without esophagitis; G89.29 Other chronic pain; M54.9 Dorsalgia, unspecified; D69.6 Thrombocytopenia, unspecified; G47.33 Obstructive sleep apnea (adult) (pediatric); E66.9 Obesity, unspecified; R06.02 Shortness of breath; Z68.33 Body mass index [BMI] 33.0-33.9, adult
CPT/HCPCS: 36415; 36430; 71045; 80048; 80053; 82274; 82607; 82728; 82746; 82947; 83540; 83550; 83735; 83874; 84484; 85007; 85014; 85018; 85027; 85045; 85055; 86618; 86666; 86668; 86757; 86788; 86789; 86850; 86900; 86901; 86920; 93005

== ENCOUNTER 2022-09-16 09:30 | Outpatient (CLI) | payer MEDICARE ==
[~2022-09-16] VITALS: Ht 182.8 cm; Wt 112.1 kg
[~2022-09-16 09:30] MED LIST changes: +CYAN500T8 PO; +METF-399 PO; +PANT40TA52 PO
== END 2022-09-16 12:10 | disposition home or self-care (01) ==
LOC: PREOP 09:30
PROVIDERS: ATTEND Surgery
DX: Z01.818 Encounter for other preprocedural examination (principal)

== ENCOUNTER 2022-09-21 08:57 | Day surgery (SDC) | payer MEDICARE ==
[~2022-09-21] VITALS: Ht 182.8 cm; Wt 112.1 kg
[2022-09-21] MEDS ORDERED: LACTATED RINGERS 1,000 ML IV STA (09:01)
--- NOTE | 2022-09-21 09:07 | Progress Note-Pre Operative ---
Pre-Operative Progress Note Date of Available H&P: Sep 15, 2022 Date H&P Reviewed: Sep 21, 2022 Time H&P Reviewed: 09:06 History & Physical: H&P Reviewed, Patient Examed, No changes noted Pre-Operative Diagnosis: Anemia, Rectal bleed CHU GOODEN DO Sep 21, 2022 09:07
[2022-09-21] MEDS ORDERED: HURRICAINE EXT TUBE (BENZOCAINE) XX PRN (09:15)
[2022-09-21 09:26] VITALS: BP 141/82
[2022-09-21] MEDS ORDERED: PROPOFOL INJECTION 50 ML IV ONE (09:36)
[2022-09-21 10:15] VITALS: BP 113/64
[2022-09-21 10:20] VITALS: BP 106/66
--- NOTE | 2022-09-21 10:21 | Progress Note-Post Operative ---
Post-Operative Progess Note Surgeon (s)/Services Host (s) Surgeon CHU GOODEN DO Services Host: none Pre-Operative Diagnosis Anemia, Rectal bleed Post-Operative Diagnosis duodenitis Hiatal hernia Colonic ulcer polyp diverticula int hemorrhoids Procedure & Operative Findings Date of Procedure 09/21/22 Procedure Performed/Findings EGD with biopsy Colonoscopy with cold biopsy PROCEDURE NOTE: After informed consent was obtained, the patient was brought to the endoscopy suite, placed in bed in left lateral decubitus position. He was administered IV sedation by the FOOD STOREROOM CLERK who then monitored vitals the entire time, heart rate, blood pressure and pulse ox and the scope was inserted down the mouth through the esophagus into the stomach. On the way down, noted some mild esophagitis, took a picture, pushed into the stomach, pushed past the antrum into the duodenum. Duodenum appeared to be inflamed and did a biopsy of the duodenum. Pulled back and did a biopsy of the antrum, then retroflexed the scope, saw small Grade II hiatal hernia. I took a picture of this and then pulled the scope into the GE junction and did a biopsy of the GE junction. Pushed the scope back into the stomach, suctioned all the air out of the stomach. At this point pulled the scope up the esophagus and out the mouth. Switched camera, switched gloves, went down below and started the colonoscopy. Pushed all the way to about 150 cm and pushed into the cecum, took a picture of appendiceal orifice and noted the ileocecal valve. I had noted multiple diverticula as I was pushing the scope in and took a picture of them. From the cecum, I slowly withdrew the scope insufflating to look circumferentially at the kimble up the ascending colon to the hepatic flexure, then down the transverse colon. I found a small ulcer in the transverse colon; took a picture and then did cold biopsy. Continued to the splenic flexure, into the descending colon down into the sigmoid and then into the rectal vault and retroflexed the scope. Took picture of the internal hemorrhoids and noted a small polyp. I removed it with cold biopsy. The patient tolerated the procedure and he recovered in the endoscopy suite. Recommended for repeat colonoscopy in 5 years Anesthesia Type IV sedation by FOOD STOREROOM CLERK Estimated Blood Loss Estimated blood loss (mL): scant Specimens/Packing Specimens Removed duodenal bx antral bx GE jxn bx Transverse colon bx rectal polyp CHU GOODEN DO Sep 21, 2022 10:20
--- NOTE | 2022-09-21 10:22 | Endoscopy Discharge Instruct ---
Endo Procedure/Findings Findings 1.: Other Findings (Duodenitis) 2.: Hiatal Hernia 3.: Polyp 4.: Diverticulosis, Internal Hemorrhoids Discharge Instructions - Activity: You might feel a little sleepy until tomorrow. This is due to the medicine you received to relax you. Until tomorrow, you should: NOT drive a car, operate machinery or power tools. NOT drink any alcoholic beverages. NOT make any important decisions or sign importortant papers. Do not return to work until tomorrow, unless otherwise instructed. Resume previous activities tomorrow. Diet: Start by taking liquids. If you tolerate liquids, advance to solid food. 1.: EGD in 3 years 2.: Colonscopy in 5 years Notify Physician - If you experience excessive bleeding, unusual abdominal pain, fever, or chest pain, contact your doctor immediately. Follow-Up: Other Follow up in my office in one week CHU GOODEN DO Sep 21, 2022 10:22
[2022-09-21 10:45] VITALS: BP 106/66
--- NOTE | 2022-09-21 11:51 | Anesthesia-General Post-Op ---
MAC Patient Condition Mental Status/LOC: Same as Preop Cardiovascular: Satisfactory Nausea/Vomiting: Absent Respiratory: Satisfactory Pain: Controlled Complications: Absent Post Op Complications Complications None Follow Up Care/Instructions Patient Instructions None needed. Anesthesiology Discharge Order Discharge Order Patient is doing well, no complaints, stable vital signs, no apparent adverse anesthesia problems. No complications reported per nursing. JW SCHMID CRNA Sep 21, 2022 11:51
== END 2022-09-21 10:48 | disposition home or self-care (01) ==
LOC: ENDO 08:57
PROVIDERS: ATTEND Surgery
DX: K29.81 Duodenitis with bleeding (principal); K44.9 Diaphragmatic hernia without obstruction or gangrene; K63.3 Ulcer of intestine; D50.9 Iron deficiency anemia, unspecified; K57.31 Diverticulosis of large intestine without perforation or abscess with bleeding; K62.1 Rectal polyp; K64.8 Other hemorrhoids; K52.9 Noninfective gastroenteritis and colitis, unspecified; K20.91 Esophagitis, unspecified with bleeding; I10 Essential (primary) hypertension; R06.02 Shortness of breath; E11.9 Type 2 diabetes mellitus without complications; E66.9 Obesity, unspecified; Z68.33 Body mass index [BMI] 33.0-33.9, adult; K20.90 Esophagitis, unspecified without bleeding; G47.33 Obstructive sleep apnea (adult) (pediatric); Z87.891 Personal history of nicotine dependence; Z79.84 Long term (current) use of oral hypoglycemic drugs; Z79.899 Other long term (current) drug therapy; Z80.0 Family history of malignant neoplasm of digestive organs

== ENCOUNTER 2022-10-08 06:54 | Day surgery (SDC) | payer MEDICARE ==
[2022-10-08] VITALS (12 sets, daily range): BP systolic 126–168; BP diastolic 67–90
[~2022-10-08] VITALS: Ht 182.8 cm; Wt 112.1 kg
[2022-10-08] MEDS ORDERED: NS IV 1000 ML 1,000 ML IV STA (07:48)
[2022-10-08] MEDS ORDERED: LIDOCAINE 1% INJ 10 ML VIAL INJ ONE (08:00)
[2022-10-08] MEDS ORDERED: MIDAZOLAM 2 MG/2 ML (VERSED) VIAL IVP ONE (08:00)
[2022-10-08] MEDS ORDERED: fentaNYL INJECTION 100 MCG/2 ML VIAL IVP ONE ×2 (08:00→09:42)
[2022-10-08 08:39] LABS: ABSOLUTE RETIC # 132 10e9/uL (24-90); BASOPHILS # (AUTO) 0.1 10^3/uL (0.0-0.1); BASOPHILS % (AUTO) 1 % (0-10); EOSINOPHILS # (AUTO) 0.1 10^3/uL (0.0-0.3); EOSINOPHILS % (AUTO) 1 % (0-10); HEMATOCRIT 29 % (40-54); HEMOGLOBIN 8.2 g/dL (13.3-17.7); LYMPHOCYTES # (AUTO) 1.9 10^3/uL (1.0-4.0); LYMPHOCYTES % (AUTO) 10 % (12-44); MEAN CORPUSCULAR HEMOGLOBIN 21 pg (25-34); MEAN CORPUSCULAR HGB CONC 29 g/dL (32-36); MEAN CORPUSCULAR VOLUME 73 fL (80-99); MONOCYTES % (AUTO) 16 % (0-12); NEUTROPHILS # (AUTO) 11.6 10^3/uL (1.8-7.8); NEUTROPHILS % (AUTO) 62 % (42-75); PLATELET COUNT 93 10^3/uL (130-400); RETICULOCYTE % 3.39 % (0.50-2.40); WHITE BLOOD COUNT 18.8 10^3/uL (4.3-11.0)
[2022-10-08 08:51] LABS: INR 1.2 (0.8-1.4); PROTHROMBIN TIME PATIENT 15.2 SEC (12.2-14.7)
--- NOTE | 2022-10-08 10:14 | Pre-Op Note & Conscious Sedat ---
Pre-Operative Progress Note Date of Available H&P: Oct 08, 2022 Date H&P Reviewed: Oct 08, 2022 Time H&P Reviewed: 08:00 Pre-Op Diagnosis: elevated white blood cell count Moderate Sedation PreProcedure Time 08:00 ASA Score 2 Airway Lungs Heart ASA score ASA 1: a normal healthy patient ASA 2: a patient with a mild systemic disease (mid diabetes, controlled hypertension, obesity ASA 3: a patient with a severe systemic disease that limits activity (angina, COPD, prior Myocardial infarction) ASA 4: a patient with an incapacitating disease that is a constant threat to life (CHF, renal failure) ASA 5: a moribund patient not expected to survive 24 hrs. (ruptured aneurysm) ASA 6: a declared brain- patient whose organs are being harvested. For emergent operations, add the letter E after the classification Mallampati Classification Grade 2 Sedation Plan Analgesia, Amnesia, Plan communicated to team members, Discussed options with patient/fam, Discussed risks with patient/fam The patient is an appropriate candidate to undergo the planned procedure, sedation, and anesthesia. The patient immediately re-assessed prior to indication. INES RIGGS MD Oct 08, 2022 10:14
--- NOTE | 2022-10-08 10:16 | Pre-Op Note & Conscious Sedat ---
Pre-Operative Progress Note Date of Available H&P: Oct 08, 2022 Date H&P Reviewed: Oct 08, 2022 Time H&P Reviewed: 08:00 Moderate Sedation PreProcedure ASA Score Airway Lungs Heart ASA score ASA 1: a normal healthy patient ASA 2: a patient with a mild systemic disease (mid diabetes, controlled hypertension, obesity ASA 3: a patient with a severe systemic disease that limits activity (angina, COPD, prior Myocardial infarction) ASA 4: a patient with an incapacitating disease that is a constant threat to life (CHF, renal failure) ASA 5: a moribund patient not expected to survive 24 hrs. (ruptured aneurysm) ASA 6: a declared brain- patient whose organs are being harvested. For emergent operations, add the letter E after the classification Sedation Plan The patient is an appropriate candidate to undergo the planned procedure, sedation, and anesthesia. The patient immediately re-assessed prior to indication. INES RIGGS MD Oct 08, 2022 10:16
[2022-10-08 10:23] LABS: NEUTROPHILS % (MANUAL) 70 %
[2022-10-08 10:24] LABS: BAND NEUTROPHILS 2 %; EOSINOPHILS % (MANUAL) 1 %; LYMPHOCYTES % (MANUAL) 11 %; METAMYELOCYTES % 2 %; MONOCYTES % (MANUAL) 12 %; MYELOCYTES % 2 %; NUCLEATED RED BLOOD CELLS 3
[2022-10-08 10:26] LABS: ANISOCYTOSIS MODERATE; HYPOCHROMASIA SLIGHT; MICROCYTOSIS MODERATE; TARGET CELLS SLIGHT
--- NOTE | 2022-10-08 10:26 | Diagnostic Imaging Report ---
INDICATION: Elevated white blood cell count. Patient presents for CT-guided bone marrow aspiration and core biopsy. DETAILS OF THE PROCEDURE: The patient was brought to the CT suite and placed on the table in the prone position. Axial imaging through the pelvis was performed to evaluate for an appropriate entry site. The low back was prepped and draped in the usual sterile fashion. The procedure was performed utilizing conscious sedation with Radiology nursing and constant patient monitoring. The patient was given a total of 1 mg of Versed intravenously as well as 100 mg of fentanyl intravenously. The total procedure time was approximately 6 minutes. Lidocaine was utilized for superficial and deep anesthesia. The bone marrow needle was advanced and placed with its tip along the posterior cortex of the right iliac bone. Bone marrow needle was advanced through the cortex utilizing a bone marrow drill. Attempts were made to aspirate marrow; however, these were unsuccessful. Therefore, the drill was utilized to obtain a bone marrow core sample. The needle was removed and hemostasis was obtained. The patient tolerated the procedure well and left the Department in stable condition. IMPRESSION: Successful CT guided bone marrow core biopsy utilizing conscious sedation. Aspirate could not be obtained, consistent with a dry tap. Dictated by: Dictated on workstation # [id number]
[2022-10-08] MEDS ORDERED: HYDROcodone/ACETAMINOPHEN 5 MG/325 MG TABLET PO PRN (10:30)
== END 2022-10-08 12:00 ==
LOC: RAD 06:54
PROVIDERS: ATTEND Internal Medicine Hematology & Oncology
DX: C94.6 Myelodysplastic disease, not elsewhere classified (principal); D47.1 Chronic myeloproliferative disease; E80.0 Hereditary erythropoietic porphyria; R70.1 Abnormal plasma viscosity; D72.0 Genetic anomalies of leukocytes; D50.9 Iron deficiency anemia, unspecified; D69.6 Thrombocytopenia, unspecified; E66.9 Obesity, unspecified; Z87.891 Personal history of nicotine dependence; Z68.33 Body mass index [BMI] 33.0-33.9, adult; Z28.310 Unvaccinated for COVID-19
CPT/HCPCS: 36415; 38222; 85007; 85027; 85045; 85055; 85610; 85730; 99156